=== PATIENT | female | born 1945 | race Hispanic/Latino ===

== ENCOUNTER 2017-08-26 16:36 | Inpatient (IN) | payer MEDICARE ==
[~2017-08-26] VITALS: Ht 162.6 cm; Wt 104.8 kg
[~2017-08-26 16:36] MED LIST: CLONIDINE HCL0.1 MG PO; DILTIAZEM ER240 M1 PO; DUTOPROL 100-11 EACH PO; HUMALOG100 UNITS/ SQ; LANTUS100 UNITS/ SQ; LASIX20 MG PO; LISINOPRIL10 MG PO; METOPROLOL SUCC50 MG PO; NORVASC5 MG PO; PANTOPRAZOLE SO40 MG PO; PRAVACHOL40 MG PO; PRAVASTATIN SOD40 MG PEG; SYNTHROID75 MCG PO; ZESTORETIC 20-1 EACH PO
--- NOTE | 2017-08-26 17:31 | Diagnostic Imaging Report ---
PROCEDURE: Frontal and lateral views of the chest. COMPARISON: 01/21/17 INDICATIONS: SHORTNESS OF BREATH, CHEST PAIN FINDINGS: Lines/tubes: None. Limited by body habitus. Lungs: The lungs are well inflated. Mild central vascular congestion. Pleura: There is no pleural effusion or pneumothorax. Heart and mediastinum: Enlarged cardiomediastinal silhouette. Bones: No acute bony abnormality. IMPRESSION: Central vascular congestion and enlarged cardiomediastinal silhouette. No definite focal consolidation. Dictated by: Samm Tao M.D. on 08/26/2017 at 17:31 Electronically approved by: Samm Tao M.D. on 08/26/2017 at 17:31
[2017-08-26 18:42] LABS: BASOPHILS # (AUTO) 0.1 (0.0-0.1); BASOPHILS % 0.6 % (0.0-1.0); EOSINOPHILS % 0.3 % (0.0-6.0); HEMATOCRIT 34.5 % (34.2-44.1); LYMPHOCYTES # (AUTO) 1.3 (1.0-3.2); LYMPHOCYTES % 12.5 % (18.0-39.1); MEAN CORPUSCULAR HEMOGLOBIN 25.9 pg (28-32); MEAN CORPUSCULAR HGB CONC 31.9 g/dL (31-35); MEAN CORPUSCULAR VOLUME 81.4 fL (81-99); MONOCYTES # (AUTO) 0.6 (0.2-0.8); MONOCYTES % 6.3 % (4.4-11.3); NEUTROPHILS # (AUTO) 8.1 (2.1-6.9); PLATELET COUNT 316 x10e3/uL (140-360); RED BLOOD COUNT 4.24 x10e6/uL (3.6-5.1); RED CELL DISTRIBUTION WIDTH 17.2 % (11.7-14.4)
[2017-08-26 18:52] LABS: INR 1.18; PROTHROMBIN TIME 14.1 seconds (11.9-14.5)
[2017-08-26 18:53] LABS: PARTIAL THROMBOPLASTIN TIME 38.2 seconds (23.8-35.5)
[2017-08-26 18:59] LABS: ALBUMIN 3.2 g/dL (3.5-5.0); ALBUMIN/GLOBULIN RATIO 0.8 (0.8-2.0); ANION GAP 15.8 mmol/L (8-16); CALCIUM 9.2 mg/dL (8.4-10.2); CREATININE, SERUM 1.28 mg/dL (0.57-1.11); POTASSIUM 3.8 mmol/L (3.5-5.1)
[2017-08-26] MEDS ORDERED: ASPIRIN 81 MG CHEW TAB PO ONE (20:30)
[2017-08-26] MEDS ORDERED: FUROSEMIDE INJ 10 MG/ML 4 ML VIAL IV ONE (20:30)
[2017-08-26] MEDS ORDERED: DEXTROSE 50% SYRINGE 50 ML IV PRN (21:00)
[2017-08-26] MEDS ORDERED: MORPHINE SULFATE 2 MG/ML SYR IV PRN (21:00)
[2017-08-26] MEDS ORDERED: ONDANSETRON HCL INJ 2 MG/ML VIAL IV PRN (21:00)
[2017-08-26] MEDS ORDERED: NITROGLYCERIN 0.4 MG SUBL SL PRN (21:00)
[2017-08-26] MEDS: FAMOTIDINE 20 MG/2 ML VIAL IV SCH (21:05)
[2017-08-26] MEDS: INSULIN REGULAR, HUMAN 100 UNIT/1 ML 3ML VIAL SQ SCH (21:15)
--- OUTSIDE RECORDS SUMMARY | 2017-08-26 22:21 | XMS REPORT ---
Author Author [facility] Organization [facility] Address Unknown Phone Unavailable Care Team Providers Care Student Development Coordinator Name Role Phone BREN GARCIA Unavailable Unavailable Problems This patient has no known problems. Allergies, Adverse Reactions, Alerts This patient has no known allergies or adverse reactions. Medications This patient has no known medications. Results Test Description Test Time Test Comments Text Results Atomic Results Result Comments CHEST 2 VIEWS [place] [address] Patient Name: BURT NDIAYE MR #: [id number] : 1945 Age/Sex: 72/F Req #: [id number] Adm Physician: Ordered by: BREN GARCIA MD Report #: [id number] Location: ER Room/Bed: Procedure: [id number] DX/CHEST 2 VIEWS Exam Date: 08/26/17 Exam Time: 1645 REPORT STATUS: Signed PROCEDURE: Frontal and lateral views of the chest. COMPARISON: 01/21/17 INDICATIONS: SHORTNESS OF BREATH, CHEST PAIN FINDINGS: Lines/tubes: None. Limited by body habitus. Lungs: The lungs are well inflated. Mild central vascular congestion. Pleura: There is no pleural effusion or pneumothorax. Heart and mediastinum: Enlarged cardiomediastinal silhouette. Bones: No acute bony abnormality. IMPRESSION: Central vascular congestion and enlarged cardiomediastinal silhouette. No definite focal consolidation. Dictated by: Samm Tao M.D. on 10/2017 at 17:31 Electronically approved by: Samm Tao M.D. on 08/26 at 17:31 Dictated By: SAMM TAO MD 173 Transcribed By: AGUSTINA on 08/26/171730 COPY TO: BREN GARCIA MD
[2017-08-26] MEDS ORDERED: NITROGLYCERIN 2% OINT 1 GM PKT ONE (22:43)
[2017-08-26] MEDS: NITROGLYCERIN 2% OINT 1 GM PKT TOP SCH (22:57)
[2017-08-27] VITALS (8 sets, daily range): BP systolic 143–187; BP diastolic 64–94
[2017-08-27] MEDS: FUROSEMIDE INJ 10 MG/ML 2 ML VIAL IV SCH ×2 (06:00→17:04)
[2017-08-27] MEDS: NITROGLYCERIN 2% OINT 1 GM PKT TOP SCH ×4 (06:00→23:24)
[2017-08-27] MEDS ORDERED: PANTOPRAZOLE SOD 40 MG TABEC PO SCH (06:00)
[2017-08-27] MEDS ORDERED: LEVOTHYROXINE SODIUM 75 MCG TAB PO SCH (06:00)
--- NOTE | 2017-08-27 06:01 | History and Physical ---
PRIMARY CARE PHYSICIAN: Dr. Galicia HAZARDOUS WASTE MANAGEMENT SPECIALIST: Dr. Rivera CHIEF COMPLAINT: Shortness of breath and substernal discomfort. HISTORY OF PRESENT ILLNESS: This is a 72-year-old woman with a history of diabetes mellitus, type 2, now developing shortness of breath and substernal chest tightness that started yesterday. She had some dizziness and nausea. She has never had a stress test before. The patient is admitted for further evaluation and management. Imaging did show pulmonary congestion with some edema. She has been started on diuretics. She is admitted for further evaluation and management. PAST MEDICAL HISTORY: Diabetes mellitus, hypertension, hypothyroidism, GERD, congestive heart failure with normal left ventricular ejection fraction in 2016, bradycardia, chronic kidney disease, stage 3/diabetic nephropathy. PAST SURGICAL HISTORY: Hysterectomy, appendectomy, cholecystectomy. ALLERGIES: PER ELECTRONIC MEDICAL RECORD. FAMILY HISTORY/SOCIAL HISTORY: Patient is . She has 2 children. No alcohol, illicits or cigarettes. MEDICATIONS: Per electronic medical record. REVIEW OF SYSTEMS: Denies any dizziness. PHYSICAL EXAMINATION VITAL SIGNS: Have been reviewed. Blood pressure is 189/89. GENERAL: A tired-appearing woman resting in bed. HEENT: Anicteric. Pupils respond to light. No oral lesions. CARDIOVASCULAR: Normal S1 and S2. LUNGS: She has reduced breath sounds at the bases. ABDOMEN: Soft, nontender and nondistended. EXTREMITIES: She has 1+ leg edema bilaterally. SKIN: Dry. PSYCHIATRIC: Flat affect. LABS: Reviewed. MEDICATIONS: Reviewed. ASSESSMENT: This is a 72-year-old woman with: 1. Acute exacerbation of diastolic congestive heart failure. 2. Diabetic nephropathy/chronic kidney disease, stage 3. 3. Diabetes mellitus, type 2. 4. Obesity. 5. Normocytic anemia, mild to moderate. 6. Hypothyroidism. PLAN 1. Will diurese the patient and monitor I's and O's. 2. Obtain hemoglobin A1c and lipid panel. 3. Monitor renal function while being diuresed. 4. Consultation with hand lens polisher, Dr. Rivera. 5. Continue IV Lasix. 6. Utilizing heparin 5000 q.12 h. and Protonix for prophylaxis. 7. Check TSH. Continue Synthroid. Job#: [id number] [place]
[2017-08-27 06:04] LABS: BASOPHILS # (AUTO) 0.1 (0.0-0.1); EOSINOPHILS # (AUTO) 0.1 (0.0-0.4); EOSINOPHILS % 1.3 % (0.0-6.0); HEMATOCRIT 30.9 % (34.2-44.1); HEMOGLOBIN 9.5 g/dL (12.0-16.0); LYMPHOCYTES # (AUTO) 1.5 (1.0-3.2); LYMPHOCYTES % 22.3 % (18.0-39.1); MEAN CORPUSCULAR HEMOGLOBIN 25.4 pg (28-32); MEAN CORPUSCULAR HGB CONC 30.7 g/dL (31-35); MEAN CORPUSCULAR VOLUME 82.6 fL (81-99); MONOCYTES # (AUTO) 0.8 (0.2-0.8); MONOCYTES % 11.8 % (4.4-11.3); NEUTROPHILS # (AUTO) 4.2 (2.1-6.9); NEUTROPHILS % 63.3 % (38.7-80.0); PLATELET COUNT 271 x10e3/uL (140-360); RED BLOOD COUNT 3.74 x10e6/uL (3.6-5.1); RED CELL DISTRIBUTION WIDTH 17.2 % (11.7-14.4)
[2017-08-27 06:38] LABS: ALBUMIN 2.8 g/dL (3.5-5.0); ALBUMIN/GLOBULIN RATIO 0.8 (0.8-2.0); ANION GAP 13.9 mmol/L (8-16); CALCIUM 8.9 mg/dL (8.4-10.2); CHOL/HDL RATIO 2.6 (3.0-3.6); CREATININE, SERUM 1.45 mg/dL (0.57-1.11); MAGNESIUM 1.6 MG/DL (1.3-2.1); POTASSIUM 3.9 mmol/L (3.5-5.1)
[2017-08-27 06:45] LABS: THYROID STIMULATING HORMONE 1.524 uIU/mL (0.350-4.940)
[2017-08-27] MEDS: INSULIN REGULAR, HUMAN 100 UNIT/1 ML 3ML VIAL SQ SCH ×4 (07:30→21:17)
[2017-08-27] MEDS: ACETAMINOPHEN 325 MG TAB PO PRN (08:30)
[2017-08-27] MEDS ORDERED: HYDRALAZINE HCL 20 MG/ML VIAL IV PRN (09:00)
[2017-08-27] MEDS: HYDRALAZINE HCL 25 MG TAB PO SCH ×2 (09:00→17:00)
[2017-08-27] MEDS: HEPARIN SOD (PORCINE) 5,000 UNIT/ML VIAL SC SCH ×2 (09:00→21:17)
[2017-08-27] MEDS: ASPIRIN 325 MG TAB EC PO SCH (09:00)
[2017-08-27] MEDS: METOPROLOL SUCCINATE 50 MG TAB XL PO SCH (09:00)
[2017-08-27] MEDS: FAMOTIDINE 20 MG/2 ML VIAL IV SCH ×2 (09:00→21:19)
--- NOTE | 2017-08-27 09:46 | Consultation ---
DATE OF CONSULTATION: August 27, 2017 CARDIOLOGY CONSULTATION REASON FOR CONSULTATION: CHF exacerbation. CONSULTING PHYSICIAN: Dr. Galicia HPI: This is a 72-year-old female that presented with shortness of breath. She stated since yesterday she started having shortness of breath, difficulty with carrying out activities of daily living. She gets short of breath with exertion. She also complained of central chest pain on a scale of 5/10 with no radiation that gets worse with ambulation and laying down. She went and saw her PCP, and she was sent to the ER for evaluation. She has a history of CHF and diabetes. She denies any palpitations, any headache or diaphoresis. She also complained of dizziness and nausea. Troponin was negative. EKG showed normal sinus rhythm with no S/T abnormalities. Chest x-ray shows central venous congestion. BNP 469. PAST MEDICAL HISTORY: Hypertension, diabetes, hypothyroidism, CHF, hyperlipidemia, anemia, and obesity. PAST SURGICAL HISTORY: Cholecystectomy, appendectomy, hysterectomy, and bilateral vein stripping. MEDICATIONS: See med list. ALLERGIES: SHE IS NOT ALLERGIC TO ANY MEDICATION. FAMILY HISTORY: Positive for CAD. REVIEW OF SYSTEMS: Negative except those mentioned above. It is positive for shortness of breath. PHYSICAL EXAMINATION VITAL SIGNS: Temperature 97, heart rate 54, blood pressure 152/65, respirations 18, oxygen saturation 95% on room air. GENERAL: She is awake, alert and oriented times 3. HEENT: Mucous membranes moist. NECK: Supple. LUNGS: Bilateral with clear decreased breath sounds. CARDIOVASCULAR: S1 and S2 present. ABDOMEN: Soft. NEUROLOGICAL: Intact. EXTREMITIES: With trace edema. LABS: Sodium 143, potassium 3.9, chloride 103, CO2 30, BUN 28, creatinine 1.45, glucose 224. White blood cells 6.67, hemoglobin 9.5, hematocrit 30.9, platelets 271,000. PT 14.1, PTT 38.2 and INR 1.18. IMPRESSION 1. Acute congestive heart failure exacerbation. 2. Hypertension. 3. Diabetes. 4. Anemia. 5. Obesity. 6. Chest pain. ASSESSMENT AND PLAN: Will get an echo to reassess the LV and the valve function. Will continue diuretic and beta casimiro. Will go ahead and hold the TITA inhibitor. Will add hydralazine. Put him on low salt diet. The chest pain could be related to the central venous congestion and CHF exacerbation. Further cardiac workup pending clinical course. Thank you for this consultation. DICTATED BY MIKE MAHARAJ NP Job#: [id number] RI
[2017-08-27 15:07] LABS: CREATINE KINASE MB 1.1 ng/mL (0-5.0)
[2017-08-27] MEDS: INSULIN DETEMIR 100 UNIT/ML PEN SQ SCH (21:17)
[2017-08-27] MEDS: SIMVASTATIN 40 MG TAB PO SCH (21:19)
[2017-08-27] MEDS ORDERED: CLONIDINE HCL 0.1 MG TAB PO PRN (23:15)
[2017-08-28] VITALS: BP 189/80
[2017-08-28 04:00] VITALS: BP 162/68
[2017-08-28] MEDS: LEVOTHYROXINE SODIUM 75 MCG TAB PO SCH (05:26)
[2017-08-28] MEDS: FUROSEMIDE INJ 10 MG/ML 2 ML VIAL IV SCH ×2 (05:26→16:40)
[2017-08-28] MEDS: NITROGLYCERIN 2% OINT 1 GM PKT TOP SCH ×3 (05:26→16:40)
[2017-08-28] MEDS: INSULIN REGULAR, HUMAN 100 UNIT/1 ML 3ML VIAL SQ SCH ×4 (07:30→21:00)
--- NOTE | 2017-08-28 07:54 | Progress Note ---
DATE: August 28, 2017 TIME: 7:30 a.m. OVERNIGHT: Some anxiety. Able to sleep after receiving Xanax. Small amount of diarrhea. REVIEW OF SYSTEMS: Denies any chest pain. PHYSICAL EXAMINATION VITAL SIGNS: Reviewed. GENERAL: A tired-appearing woman resting in bed. HEENT: Anicteric. CARDIOVASCULAR: Normal S1 and S2. LUNGS: Moderate breath sounds. ABDOMEN: Soft, nontender and nondistended. EXTREMITIES: Trace edema. SKIN: Dry. PSYCHIATRIC: Flat affect. LABS: Reviewed. MEDICATIONS: Reviewed. ASSESSMENT: A 72-year-old woman with: 1. Acute exacerbation of DISREGARD DICTATION, LENGTH 1:25 Job#: [id number] RI
[2017-08-28 08:00] VITALS: BP 125/53
[2017-08-28] MEDS: HYDRALAZINE HCL 25 MG TAB PO SCH (08:45)
[2017-08-28] MEDS: ASPIRIN 325 MG TAB EC PO SCH (08:45)
[2017-08-28] MEDS: FAMOTIDINE 20 MG/2 ML VIAL IV SCH (08:45)
[2017-08-28] MEDS: PANTOPRAZOLE SOD 40 MG TABEC PO SCH (08:45)
[2017-08-28] MEDS: METOPROLOL SUCCINATE 50 MG TAB XL PO SCH (08:45)
[2017-08-28] MEDS: HEPARIN SOD (PORCINE) 5,000 UNIT/ML VIAL SC SCH ×2 (09:00→21:00)
[2017-08-28 12:00] VITALS: BP 151/66
[2017-08-28 16:00] VITALS: BP 146/71
[2017-08-28] MEDS: HYDRALAZINE HCL 100 MG TABLET PO SCH ×2 (16:40→21:00)
[2017-08-28] MEDS: FAMOTIDINE 20 MG TAB PO SCH (16:40)
[2017-08-28 20:00] VITALS: BP 155/70
[2017-08-28] MEDS: SIMVASTATIN 40 MG TAB PO SCH (21:00)
[2017-08-28] MEDS: INSULIN DETEMIR 100 UNIT/ML PEN SQ SCH (21:00)
[2017-08-29] VITALS: BP 134/57
[2017-08-29] MEDS: NITROGLYCERIN 2% OINT 1 GM PKT TOP SCH ×4 (01:02→18:21)
[2017-08-29 04:00] VITALS: BP 143/60
[2017-08-29] MEDS: LEVOTHYROXINE SODIUM 75 MCG TAB PO SCH (05:46)
[2017-08-29] MEDS: FUROSEMIDE INJ 10 MG/ML 2 ML VIAL IV SCH ×2 (05:46→18:21)
[2017-08-29] MEDS: INSULIN REGULAR, HUMAN 100 UNIT/1 ML 3ML VIAL SQ SCH ×4 (07:30→20:51)
[2017-08-29 07:35] VITALS: BP 133/61
[2017-08-29] MEDS: ASPIRIN 325 MG TAB EC PO SCH (07:55)
[2017-08-29] MEDS: FAMOTIDINE 20 MG TAB PO SCH ×2 (07:55→16:00)
[2017-08-29] MEDS: PANTOPRAZOLE SOD 40 MG TABEC PO SCH (07:55)
[2017-08-29] MEDS: HYDRALAZINE HCL 100 MG TABLET PO SCH ×3 (07:55→20:53)
[2017-08-29] MEDS: HEPARIN SOD (PORCINE) 5,000 UNIT/ML VIAL SC SCH ×2 (07:55→21:00)
[2017-08-29] MEDS ORDERED: REGADENOSON 0.4 MG/5 ML SYR IV ONE (09:33)
[2017-08-29 15:30] VITALS: BP 150/64
[2017-08-29] MEDS: METOPROLOL SUCCINATE 50 MG TAB XL PO SCH (16:00)
[2017-08-29] MEDS: ACETAMINOPHEN 325 MG TAB PO PRN (17:35)
[2017-08-29 20:12] VITALS: BP 123/54
[2017-08-29] MEDS: INSULIN DETEMIR 100 UNIT/ML PEN SQ SCH (20:52)
[2017-08-29] MEDS: SIMVASTATIN 40 MG TAB PO SCH (21:00)
[2017-08-30] VITALS: BP 132/59
[2017-08-30 01:05] VITALS: BP 132/59
[2017-08-30 05:29] VITALS: BP 110/56
[2017-08-30] MEDS: LEVOTHYROXINE SODIUM 75 MCG TAB PO SCH (06:06)
[2017-08-30] MEDS: FUROSEMIDE INJ 10 MG/ML 2 ML VIAL IV SCH (06:06)
[2017-08-30] MEDS: NITROGLYCERIN 2% OINT 1 GM PKT TOP SCH ×3 (06:07→12:00)
[2017-08-30] MEDS: INSULIN REGULAR, HUMAN 100 UNIT/1 ML 3ML VIAL SQ SCH ×2 (07:30→11:30)
[2017-08-30] MEDS: FAMOTIDINE 20 MG TAB PO SCH (07:30)
[2017-08-30 07:44] VITALS: BP 125/56
[2017-08-30 08:00] VITALS: BP 125/56
[2017-08-30 08:33] LABS: BASOPHILS % 0.5 % (0.0-1.0); EOSINOPHILS # (AUTO) 0.1 (0.0-0.4); EOSINOPHILS % 1.6 % (0.0-6.0); HEMATOCRIT 34.1 % (34.2-44.1); HEMOGLOBIN 10.4 g/dL (12.0-16.0); LYMPHOCYTES # (AUTO) 1.3 (1.0-3.2); LYMPHOCYTES % 15.6 % (18.0-39.1); MEAN CORPUSCULAR HEMOGLOBIN 25.8 pg (28-32); MEAN CORPUSCULAR HGB CONC 30.5 g/dL (31-35); MEAN CORPUSCULAR VOLUME 84.6 fL (81-99); MONOCYTES # (AUTO) 0.9 (0.2-0.8); MONOCYTES % 10.9 % (4.4-11.3); NEUTROPHILS # (AUTO) 5.8 (2.1-6.9); NEUTROPHILS % 71.2 % (38.7-80.0); PLATELET COUNT 338 x10e3/uL (140-360); RED BLOOD COUNT 4.03 x10e6/uL (3.6-5.1); RED CELL DISTRIBUTION WIDTH 17.2 % (11.7-14.4)
[2017-08-30 08:51] LABS: ALBUMIN 2.8 g/dL (3.5-5.0); ALBUMIN/GLOBULIN RATIO 0.8 (0.8-2.0); CREATININE, SERUM 1.99 mg/dL (0.57-1.11)
[2017-08-30] MEDS: PANTOPRAZOLE SOD 40 MG TABEC PO SCH (09:00)
[2017-08-30] MEDS: METOPROLOL SUCCINATE 50 MG TAB XL PO SCH (09:00)
[2017-08-30] MEDS: ASPIRIN 325 MG TAB EC PO SCH (09:00)
[2017-08-30] MEDS: HEPARIN SOD (PORCINE) 5,000 UNIT/ML VIAL SC SCH (09:00)
[2017-08-30] MEDS: HYDRALAZINE HCL 100 MG TABLET PO SCH (09:00)
--- NOTE | 2017-08-30 13:01 | Cardiology Report ---
DATE OF STUDY: August 29, 2017 LEXISCAN NUCLEAR STRESS TEST INDICATION: Chest pain. DESCRIPTION OF PROCEDURE: After informed consent, patient was brought to the stress lab. She was given 10 mCi of technetium 99 Myoview, and myocardial perfusion SPECT images were obtained in the horizontal long axis, short axis and vertical long axis views. Subsequently, patient was given 0.4 mg Lexiscan intravenously. Patient was given 27 mCi of technetium 99 Myoview, and myocardial perfusion SPECT images were obtained in the horizontal long axis, short axis and vertical long axis views. Gating images were also obtained. Patient tolerated this procedure without any complications. REPORT: Baseline EKG shows sinus bradycardia at 55 beats per minute, normal axis, normal intervals, nonspecific ST-T changes. PARAMETERS 1. Resting heart rate is 58 beats per minute. 2. Maximum heart rate is 85 beats per minute. 3. Resting blood pressure is 133/56 mmHg. 4. Maximum blood pressure 153/52 mmHg. REASON FOR TERMINATION: Endpoint attained. INTERPRETATION 1. Negative for chest pain. 2. Negative for arrhythmias. 3. Blood pressure response consistent with Lexiscan. 4. No significant ST-T changes seen during Lexiscan infusion compared to baseline. 5. Analysis of SPECT images reveals uniform radioisotope uptake in all segments of the myocardium without any significant perfusion defects. CONCLUSION: 1. No evidence of significant ischemia or infarction on this study. 2. No wall motion abnormalities. 3. Overall ejection fraction is 61%. Job#: [id number] EV
== END 2017-08-30 14:44 | disposition home or self-care (01) | DRG 291 ==
LOC: ER 16:36 → CANBEDREQ 20:44 → ERHOLD 22:18 → MED/SURG2 23:23 → OBSVTOIN 08-28 14:51
PROVIDERS: ADMIT Internal Medicine; ATTEND Internal Medicine
DX: I13.0 Hypertensive heart and chronic kidney disease with heart failure and stage 1 through stage 4 chronic kidney disease, or unspecified chronic kidney disease (principal); I50.33 Acute on chronic diastolic (congestive) heart failure; E11.21 Type 2 diabetes mellitus with diabetic nephropathy; N18.3 Chronic kidney disease, stage 3 (moderate); E11.22 Type 2 diabetes mellitus with diabetic chronic kidney disease; Z79.4 Long term (current) use of insulin; E03.9 Hypothyroidism, unspecified; E78.5 Hyperlipidemia, unspecified; D64.9 Anemia, unspecified; E66.9 Obesity, unspecified; Z68.39 Body mass index [BMI] 39.0-39.9, adult; R07.9 Chest pain, unspecified
CPT/HCPCS: 36415; 71046; 78452; 80053; 80061; 82550; 82553; 82948; 83036; 83735; 83880; 84443; 84484; 85025; 85610; 85730; 93005; 93017; 93306; 99284; A9502; G0378; J0360; J1644; J1940; J2405

== ENCOUNTER 2018-01-31 13:01 | Inpatient (IN) | payer MEDICARE ==
[~2018-01-31] VITALS: Ht 162.6 cm; Wt 102.1 kg
[2018-01-31 13:47] LABS: BASOPHILS # (AUTO) 0.1 (0.0-0.1); BASOPHILS % 0.5 % (0.0-1.0); EOSINOPHILS % 0.1 % (0.0-6.0); HEMATOCRIT 34.8 % (34.2-44.1); HEMOGLOBIN 10.9 g/dL (12.0-16.0); LYMPHOCYTES # (AUTO) 0.9 (1.0-3.2); LYMPHOCYTES % 8.5 % (18.0-39.1); MEAN CORPUSCULAR HEMOGLOBIN 25.2 pg (28-32); MEAN CORPUSCULAR HGB CONC 31.3 g/dL (31-35); MEAN CORPUSCULAR VOLUME 80.4 fL (81-99); MONOCYTES % 9.1 % (4.4-11.3); NEUTROPHILS # (AUTO) 8.8 (2.1-6.9); NEUTROPHILS % 81.3 % (38.7-80.0); PLATELET COUNT 248 x10e3/uL (140-360); RED BLOOD COUNT 4.33 x10e6/uL (3.6-5.1); RED CELL DISTRIBUTION WIDTH 17.5 % (11.7-14.4)
[2018-01-31 13:59] LABS: INR 1.29; PROTHROMBIN TIME 15.1 seconds (11.9-14.5)
[2018-01-31 14:00] LABS: PARTIAL THROMBOPLASTIN TIME 36.2 seconds (23.8-35.5)
[2018-01-31] MEDS ORDERED: FUROSEMIDE INJ 10 MG/ML 4 ML VIAL IV ONE (14:00)
[2018-01-31 14:09] LABS: ALBUMIN/GLOBULIN RATIO 0.8 (0.8-2.0); ANION GAP 14.8 mmol/L (8-16); CALCIUM 9.4 mg/dL (8.4-10.2); CREATININE, SERUM 1.38 mg/dL (0.57-1.11); POTASSIUM 3.8 mmol/L (3.5-5.1)
[2018-01-31 14:15] LABS: CREATINE KINASE MB 0.5 ng/mL (0-5.0)
--- NOTE | 2018-01-31 16:03 | Diagnostic Imaging Report ---
PROCEDURE: A single AP view of the chest. COMPARISON: Chest radiograph 08/26/17. INDICATIONS: SHORTNESS OF BREATH FINDINGS: Lines/tubes: None. Lungs: The lungs are well inflated and clear. There is no evidence of pneumonia or pulmonary edema. Pleura: There is no pleural effusion or pneumothorax. Heart and mediastinum: Mild enlargement of the cardiomediastinal silhouette. Bones: No acute bony abnormality. IMPRESSION: Mild enlarged cardiomediastinal silhouette without evidence of pneumonia or pulmonary edema. Dictated by: LUH ARREGUIN M.D. on 01/31/2018 at 14:48 Electronically approved by: LUH ARREGUIN M.D. on 01/31/2018 at 14:48
[2018-01-31] MEDS ORDERED: SODIUM CHLORIDE FLUSH 10 ML SYR INJ PRN (16:45)
[2018-01-31] MEDS: FUROSEMIDE INJ 10 MG/ML 4 ML VIAL IV SCH (17:03)
[2018-01-31] MEDS ORDERED: DEXTROSE 50% SYRINGE 50 ML IV PRN (17:30)
[2018-01-31 19:05] LABS: CLARITY,URINE SL CLOUDY (CLEAR); COLOR,URINE YELLOW (YELLOW); KETONES,URINE NEGATIVE (NEGATIVE); LEUKOCYTE ESTERASE ,URINE NEGATIVE (NEGATIVE); NITRITE,URINE NEGATIVE (NEGATIVE); PROTEIN,URINE DIPSTICK 2+ (NEGATIVE)
[2018-01-31 19:06] LABS: BILIRUBIN,URINE NEGATIVE (NEGATIVE); URINE UROBILINOGEN 1 mg/dL (0.2 - 1)
[2018-01-31 19:13] LABS: AMORPHOUS SEDIMENT,URINE FEW (FEW); BACTERIA,URINE MODERATE /HPF; EPITHELIAL CELLS,URINE FEW /LPF
[2018-01-31 20:00] VITALS: BP 161/73
[2018-01-31 21:00] VITALS: BP 161/73
[2018-01-31] MEDS: INSULIN DETEMIR 100 UNIT/ML PEN SQ SCH (21:00)
[2018-01-31 22:34] LABS: CREATINE KINASE MB 1.5 ng/mL (0-5.0)
[2018-02-01] VITALS (9 sets, daily range): BP systolic 165–198; BP diastolic 66–90
[2018-02-01] MEDS: CLONIDINE HCL 0.1 MG TAB PO PRN ×2 (03:43→21:33)
--- NOTE | 2018-02-01 05:25 | Diagnostic Imaging Report ---
EXAM: CHEST SINGLE (PORTABLE), AP 1 view INDICATION: Shortness of breath COMPARISON: AP view of the chest January 31, 2018 FINDINGS: LINES/TUBES: None LUNGS: No consolidations or edema. PLEURA: No effusions or pneumothorax. HEART AND MEDIASTINUM: Stable appearance. BONES AND SOFT TISSUES: No acute findings. IMPRESSION: No acute thoracic abnormality. Signed by: Dr. Callie Harley M.D. on 02/01/2018 5:22 AM
[2018-02-01 05:44] LABS: BASOPHILS % 0.2 % (0.0-1.0); EOSINOPHILS % 0.2 % (0.0-6.0); HEMATOCRIT 29.9 % (34.2-44.1); HEMOGLOBIN 9.3 g/dL (12.0-16.0); LYMPHOCYTES # (AUTO) 1.1 (1.0-3.2); LYMPHOCYTES % 9.8 % (18.0-39.1); MEAN CORPUSCULAR HGB CONC 31.1 g/dL (31-35); MEAN CORPUSCULAR VOLUME 80.4 fL (81-99); MONOCYTES # (AUTO) 1.1 (0.2-0.8); MONOCYTES % 10.2 % (4.4-11.3); NEUTROPHILS # (AUTO) 8.8 (2.1-6.9); NEUTROPHILS % 79.3 % (38.7-80.0); PLATELET COUNT 205 x10e3/uL (140-360); RED BLOOD COUNT 3.72 x10e6/uL (3.6-5.1); RED CELL DISTRIBUTION WIDTH 17.3 % (11.7-14.4)
[2018-02-01 05:59] LABS: ANION GAP 13.6 mmol/L (8-16); CALCIUM 8.8 mg/dL (8.4-10.2); CREATININE, SERUM 1.29 mg/dL (0.57-1.11); POTASSIUM 3.6 mmol/L (3.5-5.1)
[2018-02-01] MEDS: LEVOTHYROXINE SODIUM 75 MCG TAB PO SCH (06:07)
[2018-02-01 06:20] LABS: CREATINE KINASE MB 0.6 ng/mL (0-5.0)
[2018-02-01] MEDS ORDERED: ACETAMINOPHEN 325 MG TAB PO PRN (07:15)
[2018-02-01] MEDS: PANTOPRAZOLE SOD 40 MG TABEC PO SCH (07:57)
[2018-02-01] MEDS: INSULIN LISPRO 100 UNIT/1 ML 3ML VIAL SQ SCH ×2 (07:57→17:04)
[2018-02-01] MEDS ORDERED: SIMVASTATIN 20 MG TAB PO SCH (09:00)
[2018-02-01] MEDS: METOPROLOL SUCCINATE 50 MG TAB XL PO SCH (09:00)
[2018-02-01] MEDS ORDERED: LISINOPRIL 10 MG TAB PO SCH (09:00)
[2018-02-01] MEDS ORDERED: LISINOPRIL 20 MG TAB PO SCH (09:00)
[2018-02-01] MEDS: FUROSEMIDE INJ 10 MG/ML 4 ML VIAL IV SCH ×2 (09:48→17:02)
[2018-02-01] MEDS: LISINOPRIL 20 MG TAB PO SCH (17:02)
--- NOTE | 2018-02-01 19:53 | Consultation ---
DATE OF CONSULTATION: REASON FOR CONSULTATION: Shortness of breath. HISTORY OF PRESENT ILLNESS: Mrs. Rivera is a 72-year-old female with pertinent past medical history of CHF and follows Dr. Rivera. She states that she came into the hospital due to worsening shortness of breath. She states that she noticed the shortness of breath getting worse last few weeks. However, she has been struggling the last month. She, at this moment, denies any chest pain, does endorse shortness of breath, but feels a lot better while on oxygen. Denies any palpitations, dizziness, syncope, nausea, vomiting, abdominal pain or dysuria. PAST MEDICAL HISTORY: Hypertension, diabetes, hypothyroidism, CHF, hyperlipidemia, anemia, obesity. PAST SURGICAL HISTORY: Cholecystectomy, appendectomy, hysterectomy, and multiple venous procedures. ALLERGIES: PER ELECTRONIC CHART. FAMILY HISTORY: Pertinent for CAD. REVIEW OF SYSTEMS: Negative except as mentioned above. VITALS: Temperature 98.1. Pulse 68. Respiratory rate 16. Blood pressure 165/69. Oxygen saturation 98% on 3 L nasal cannula. CARDIOVASCULAR MEDICATIONS 1. Lisinopril 10 mg p.o. daily. 2. Lasix 40 IV b.i.d. 3. Levothyroxine 75 mcg p.o. daily. 4. Clonidine 0.1 mg q.6 h p.r.n. for hypertension. 5. Metoprolol 100 p.o. daily. 6. Simvastatin 40 p.o. nightly. LABS: WBC 11.07, hemoglobin 9.3, hematocrit 29.9, platelets 205,000. Sodium 140, potassium 3.6, BUN 26, creatinine 1.29, glucose 213, creatinine kinase 53, CK-MB 0.60, troponin 0.006. Chest x-ray from yesterday with no acute thoracic abnormalities. Telemetry sinus rhythm. PHYSICAL EXAM GENERAL: Alert and oriented times 3. Resting comfortably in bed. Does not appear to be in any acute distress. LUNGS: Clear to auscultation throughout. No wheezing, no rhonchi or crackles noted. CARDIOVASCULAR: Regular rate and rhythm. Normal S1, S2. No gallops or murmurs noted. ABDOMEN: Rounded, soft, nontender. LOWER EXTREMITIES: Trace edema bilaterally. IMPRESSIONS 1. Shortness of breath. 2. Congestive heart failure. 3. Hypertension. 4. Diabetes mellitus. ASSESSMENT AND PLAN: Patient does not appear to be volume overloaded at this point. Chest x-ray negative and . However, continue diuretics and the above-listed cardiac medication at this time. Up titrate lisinopril dose for better blood pressure control. Consider ischemic evaluation. This can be done as outpatient. Obtain echocardiogram this morning. Recommendations will follow. We thank you very much for this consultation and allowing us to participate in this patient's care. Maintain on oxygen. May need to be evaluated for oxygen as outpatient. Dictated By: Clair Calzada NP Job#: [id number] CQ
[2018-02-01] MEDS: SIMVASTATIN 40 MG TAB PO SCH (20:14)
[2018-02-01] MEDS: INSULIN DETEMIR 100 UNIT/ML PEN SQ SCH (20:28)
[2018-02-02] VITALS (10 sets, daily range): BP systolic 149–177; BP diastolic 62–104
[2018-02-02] MEDS: LEVOTHYROXINE SODIUM 75 MCG TAB PO SCH (06:06)
[2018-02-02] MEDS: INSULIN LISPRO 100 UNIT/1 ML 3ML VIAL SQ SCH ×2 (07:30→16:38)
[2018-02-02] MEDS: PANTOPRAZOLE SOD 40 MG TABEC PO SCH (08:06)
[2018-02-02] MEDS: METOPROLOL SUCCINATE 50 MG TAB XL PO SCH (08:36)
[2018-02-02] MEDS: FUROSEMIDE INJ 10 MG/ML 4 ML VIAL IV SCH (09:23)
[2018-02-02] MEDS: LISINOPRIL 20 MG TAB PO SCH ×2 (09:24→16:20)
--- NOTE | 2018-02-02 12:32 | Progress Note ---
DATE: CARDIOLOGY PROGRESS NOTE SUBJECTIVE: Patient states that she feels a lot better today. Shortness of breath has improved. Wondering if she would qualify for home oxygen. Otherwise, denies any chest pain. OBJECTIVE VITAL SIGNS: Temperature 96.1, pulse 54, respiratory rate 14, blood pressure 170/83, oxygen saturation 97% on 3 L nasal cannula. CARDIOVASCULAR MEDICATIONS 1. Lisinopril 20 mg p.o. b.i.d. 2. Lasix 40 IV b.i.d. 3. Clonidine 0.1 mg q.6 h. p.r.n. for elevated BP. 4. Simvastatin 40 mg p.o. at night. 5. Metoprolol 100 mg p.o. daily. LABS: No new labs today. Chest x-ray from yesterday with no acute thoracic abnormalities. Telemetry is sinus bradycardia. PHYSICAL EXAMINATION GENERAL: Alert and oriented times 3. and daughter at the bedside. Does not appear to be in any acute distress. Sitting upright. LUNGS: Clear to auscultation throughout. No wheezing. No rhonchi or crackles noted. CARDIOVASCULAR: Regular rate and rhythm. Diastolic murmur present. Normal S1 and S2. ABDOMEN: Rounded, soft and nontender. EXTREMITIES: Trace edema bilaterally. IMPRESSION 1. Shortness of breath. 2. Congestive heart failure. 3. Hypertension. 4. Diabetes mellitus. ASSESSMENT AND PLAN: The patient does not appear to be volume overloaded at this point. Does not appear to be in acute exacerbation of her heart failure. However, continue with the above-listed cardiac medications. Consider transitioning Lasix to p.o. for now, and plan for discharge early in the week. Also, ambulatory oxygen check to see if need for home oxygen. Consider ischemic eval as an outpatient. Awaiting echocardiogram review. Recommendations will follow. DICTATED BY REX KIRKPATRICK NP Job#: [id number] [place]
[2018-02-02] MEDS: FUROSEMIDE 40 MG TAB PO SCH ×2 (16:19→20:28)
[2018-02-02] MEDS: CLONIDINE HCL 0.1 MG TAB PO PRN ×2 (16:20→20:30)
[2018-02-02] MEDS: SIMVASTATIN 40 MG TAB PO SCH (20:29)
[2018-02-02] MEDS: INSULIN DETEMIR 100 UNIT/ML PEN SQ SCH (20:33)
[2018-02-03] VITALS: BP 175/73
[2018-02-03 04:00] VITALS: BP 160/70
[2018-02-03] MEDS: LEVOTHYROXINE SODIUM 75 MCG TAB PO SCH (05:04)
[2018-02-03] MEDS: CLONIDINE HCL 0.1 MG TAB PO PRN (05:04)
[2018-02-03] MEDS: FUROSEMIDE INJ 10 MG/ML 4 ML VIAL IV SCH ×3 (05:40→21:14)
[2018-02-03 06:20] LABS: BASOPHILS % 0.4 % (0.0-1.0); EOSINOPHILS # (AUTO) 0.2 (0.0-0.4); EOSINOPHILS % 2.8 % (0.0-6.0); HEMATOCRIT 31.8 % (34.2-44.1); HEMOGLOBIN 9.7 g/dL (12.0-16.0); LYMPHOCYTES # (AUTO) 1.4 (1.0-3.2); MEAN CORPUSCULAR HEMOGLOBIN 24.8 pg (28-32); MEAN CORPUSCULAR HGB CONC 30.5 g/dL (31-35); MEAN CORPUSCULAR VOLUME 81.3 fL (81-99); MONOCYTES # (AUTO) 0.8 (0.2-0.8); MONOCYTES % 10.9 % (4.4-11.3); NEUTROPHILS # (AUTO) 4.7 (2.1-6.9); NEUTROPHILS % 65.6 % (38.7-80.0); PLATELET COUNT 216 x10e3/uL (140-360); RED BLOOD COUNT 3.91 x10e6/uL (3.6-5.1); RED CELL DISTRIBUTION WIDTH 16.9 % (11.7-14.4)
[2018-02-03 06:22] LABS: ALBUMIN 2.4 g/dL (3.5-5.0); ALBUMIN/GLOBULIN RATIO 0.7 (0.8-2.0); ANION GAP 13.3 mmol/L (8-16); CALCIUM 8.9 mg/dL (8.4-10.2); CREATININE, SERUM 1.16 mg/dL (0.57-1.11); POTASSIUM 3.3 mmol/L (3.5-5.1)
[2018-02-03] MEDS: INSULIN LISPRO 100 UNIT/1 ML 3ML VIAL SQ SCH ×2 (07:30→16:10)
[2018-02-03 07:39] VITALS: BP 127/53
[2018-02-03] MEDS: METOPROLOL SUCCINATE 50 MG TAB XL PO SCH (08:25)
[2018-02-03] MEDS: PANTOPRAZOLE SOD 40 MG TABEC PO SCH (08:44)
[2018-02-03] MEDS: LISINOPRIL 20 MG TAB PO SCH ×2 (08:44→16:10)
[2018-02-03 16:36] VITALS: BP 158/81
--- NOTE | 2018-02-03 19:09 | Progress Note ---
DATE: February 03, 2018 CARDIOLOGY PROGRESS NOTE SUBJECTIVE: No major events overnight. Her shortness of breath is significantly improved. Had home O2 assessment earlier today showing desatting down to 87% with exertion. No chest pain. Lower extremity edema significantly improved as well. REVIEW OF SYSTEMS: As above, otherwise negative. OBJECTIVE VITAL SIGNS: Temperature 96.6, pulse 69, respiratory rate 20, blood pressure 158/81, satting 94% on 3 L nasal cannula. GENERAL: Elderly female in no acute distress. CARDIOVASCULAR: Regular rate and rhythm. No murmurs, rubs or gallops. PMI nondisplaced. Palpable carotid pulses. Palpable radial pulses. Palpable pedal pulses. Trace edema around the ankle. RESPIRATORY: Lungs are clear to auscultation bilaterally. No respiratory distress. ABDOMEN: Soft, nontender, nondistended. NEURO AND PSYCH: Alert and oriented to person, place and time. Normal affect. LABORATORY DATA: Reviewed. CARDIOVASCULAR MEDICATIONS: Reviewed. ASSESSMENT 1. [id number] diastolic heart failure. 2. Hypoxia. 3. Shortness of breath. 4. Hypertension. 5. Diabetes. 6. Acute kidney injury on chronic kidney disease. PLAN: Continue IV diuretics for now as the patient remains hypoxic. Likely has advanced diastolic heart failure given preserved EF on previous echoes. Has had a normal stress test done in the past per the patient and the family but never had a cath. Ambulatory oxygen check shows that she needs home oxygen. Will discontinue lisinopril for now as the patient has a history of cough with lisinopril and change it to an ARB. Her heart rates dip down into the 40s and 50s on telemetry. Will discontinue metoprolol for now and change to carvedilol, which has less beta blockade. Thank you for this consult. Will continue to follow. Job#: [id number]
[2018-02-03 20:00] VITALS: BP 159/99
[2018-02-03] MEDS: SIMVASTATIN 40 MG TAB PO SCH (21:14)
[2018-02-03] MEDS: INSULIN DETEMIR 100 UNIT/ML PEN SQ SCH (21:14)
[2018-02-03 22:12] VITALS: BP 159/99
[2018-02-04] VITALS: BP 157/92
[2018-02-04 04:00] VITALS: BP 151/82
[2018-02-04] MEDS: FUROSEMIDE INJ 10 MG/ML 4 ML VIAL IV SCH ×2 (05:19→13:54)
[2018-02-04] MEDS: LEVOTHYROXINE SODIUM 75 MCG TAB PO SCH (05:19)
[2018-02-04] MEDS: INSULIN LISPRO 100 UNIT/1 ML 3ML VIAL SQ SCH ×2 (07:30→17:01)
[2018-02-04 08:23] VITALS: BP 131/55
[2018-02-04] MEDS: CARVEDILOL 12.5 MG TAB PO SCH ×2 (08:39→17:01)
[2018-02-04] MEDS: PANTOPRAZOLE SOD 40 MG TABEC PO SCH (08:39)
[2018-02-04] MEDS ORDERED: LOSARTAN POTASSIUM 100 MG TAB PO SCH (09:00)
[2018-02-04 12:29] VITALS: BP 144/71
--- NOTE | 2018-02-04 15:43 | Progress Note ---
DATE: February 04, 2018 CARDIOLOGY PROGRESS NOTE SUBJECTIVE: No major events overnight. Breathing is better today. Plan to be discharged today on home oxygen. REVIEW OF SYSTEMS: Is as above, otherwise negative. OBJECTIVE VITAL SIGNS: Temperature 96.6, pulse 77, respiratory rate 20, blood pressure 131/55, and satting 98% on 2 L. GENERAL: Elderly female in no acute distress. CARDIOVASCULAR: Regular rate and rhythm. No murmurs, rubs or gallops. PMI nondisplaced. Palpable carotid pulses. Palpable radial pulses. Palpable pedal pulses. Trace edema on the ankle. RESPIRATORY: Lungs are clear to auscultation bilaterally. No respiratory distress. ABDOMEN: Soft, nontender and nondistended. NEURO/PSYCH: Alert and oriented to person, place and time. Normal affect. LABORATORY DATA: Reviewed. CARDIOVASCULAR MEDICATIONS: Reviewed. Prescriptions given. ASSESSMENT 1. [id number] diastolic heart failure. 2. Hypoxia. 3. Shortness of breath. 4. Hypertension. 5. Diabetes. 6. Acute kidney injury on chronic kidney disease. PLAN: The patient is ready to be discharged today from a cardiovascular standpoint. Continue her current regimen of carvedilol 6.25 mg b.i.d., as well as losartan 50 mg daily for her diastolic heart failure. Change back to her home diuretic dose of 40 mg b.i.d. The patient will follow up with us in the clinic in 2 weeks post discharge. The patient is to go home on home oxygen. Metoprolol discontinued this admission due to bradycardia in the 40s and 50s. Lisinopril discontinued given her previous history of cough with lisinopril. Thank you for this consult. Will continue to follow. Job#: [id number] AUTUMN
[2018-02-04] MEDS ORDERED: CARVEDILOL3.125 MG PO (16:32)
[2018-02-04] MEDS ORDERED: LOSARTAN POTAS100 MG PO (16:32)
[2018-02-04] MEDS ORDERED: FUROSEMIDE40 MG PO (16:33)
[2018-02-04 17:43] VITALS: BP 151/67
== END 2018-02-04 18:06 | disposition home or self-care (01) | DRG 291 ==
LOC: ER 13:01 → ERHOLD 17:12 → IMCU 20:36 → OBSVTOIN 02-02 10:12 → MED/SURG 02-02 10:47
PROVIDERS: ADMIT Internal Medicine; ATTEND Internal Medicine
DX: I13.0 Hypertensive heart and chronic kidney disease with heart failure and stage 1 through stage 4 chronic kidney disease, or unspecified chronic kidney disease (principal); I50.33 Acute on chronic diastolic (congestive) heart failure; N17.9 Acute kidney failure, unspecified; E78.5 Hyperlipidemia, unspecified; Z82.49 Family history of ischemic heart disease and other diseases of the circulatory system; E03.9 Hypothyroidism, unspecified; D64.9 Anemia, unspecified; E66.9 Obesity, unspecified; E11.22 Type 2 diabetes mellitus with diabetic chronic kidney disease; R09.02 Hypoxemia; N18.3 Chronic kidney disease, stage 3 (moderate); Z68.38 Body mass index [BMI] 38.0-38.9, adult
CPT/HCPCS: 36415; 71045; 80048; 80053; 81001; 82550; 82553; 82948; 83735; 83880; 84484; 85025; 85610; 85730; 87086; 93005; 93306; 96372; 99284; G0378; J1940; J7799

== ENCOUNTER → 2018-02-28 | Day surgery (SDC) | payer MEDICARE ==
[2018-02-27 11:37] LABS: BASOPHILS # (AUTO) 0.1 (0.0-0.1); BASOPHILS % 0.7 % (0.0-1.0); EOSINOPHILS # (AUTO) 0.2 (0.0-0.4); HEMATOCRIT 37.6 % (34.2-44.1); HEMOGLOBIN 11.4 g/dL (12.0-16.0); LYMPHOCYTES # (AUTO) 1.9 (1.0-3.2); LYMPHOCYTES % 25.2 % (18.0-39.1); MEAN CORPUSCULAR HEMOGLOBIN 25.2 pg (28-32); MEAN CORPUSCULAR HGB CONC 30.3 g/dL (31-35); MEAN CORPUSCULAR VOLUME 83.2 fL (81-99); MONOCYTES # (AUTO) 0.8 (0.2-0.8); NEUTROPHILS # (AUTO) 4.7 (2.1-6.9); NEUTROPHILS % 61.8 % (38.7-80.0); PLATELET COUNT 233 x10e3/uL (140-360); RED BLOOD COUNT 4.52 x10e6/uL (3.6-5.1)
[2018-02-27 11:53] LABS: ALBUMIN 3.3 g/dL (3.5-5.0); ALBUMIN/GLOBULIN RATIO 0.9 (0.8-2.0); ANION GAP 15.7 mmol/L (8-16); CALCIUM 9.9 mg/dL (8.4-10.2); CREATININE, SERUM 1.98 mg/dL (0.57-1.11); POTASSIUM 3.7 mmol/L (3.5-5.1)
[~2018-02-28] VITALS: Ht 162.6 cm; Wt 98.0 kg
[2018-02-28] VITALS (9 sets, daily range): BP systolic 130–178; BP diastolic 43–78
[~2018-02-28] MED LIST changes: +CARVEDILOL3.125 MG PO; +FENTANYL CITRATE/PF 100MCG/2 ML INJ ONE; +FUROSEMIDE40 MG PO; +HEPARIN SOD (PORCINE) 1000 UNIT/ML 30ML ONE; +HEPARIN SOD/SOD CHLORIDE 2,000 ML ONE; +HYDRALAZINE HCL25 MG PO; +IOPAMIDOL 370 MG/ML 200 ML INFUS..BTL INJ ONE; +LIDOCAINE HCL 2% LOCAL 20 ML VIAL ONE; +LOSARTAN POTAS100 MG PO; +MIDAZOLAM HCL 2 MG/2 ML VIAL ONE; +NITROGLYCERIN/D5W 200 MCG/ML 250 ML ONE; +SODIUM CHLORIDE 0.9% 1000ML 1,000 ML ONE; +VERAPAMIL HCL 2.5 MG/ML 2 ML VIAL ONE
--- OUTSIDE RECORDS SUMMARY | 2018-03-27 06:37 | XMS REPORT | Continuity of Care Document ---
Author Author [facility] Organization [facility] Address [address] [place] [address] Phone Unavailable Care Team Providers Care Linux Administrator Name Role Phone MAYRA LOPEZ MD PCP Insurance Providers Guarantor Amanda Beck Address [address] [place] [address] Email [email or web address] Policy Number [id number] Subscriber's Name Amanda Beck Relationship 18 Self / Same As Patient Group Name RETIRED Effective Date 15 Advance Directives Directive Response Recorded Date/Time Does the patient have an advance directive? No 01/31/18 9:00pm If yes, is advance directive on file with [facility]? No 01/31/18 9:00pm If not on file with [facility] will patient provide a copy? No 01/31/18 9:00pm Do you have a Directive to Physician? No 01/31/18 2:03pm Do you have a Medical Power of Sounding Device Operator? No 01/31/18 2:03pm Do you have an out of hospital Do Not Resuscitate Order? No 01/31/18 2:03pm Do you have any special needs we should be aware of? No 01/31/18 2:03pm Do you have a support person here with you today? Yes 01/31/18 2:03pm Did patient receive Notice of Privacy Practices? Yes 01/31/18 2:03pm Did patient receive patient rights and responsibilities? Yes 01/31/18 2:03pm Problems Medical Problem Onset Date Status CHF (congestive heart failure) Unknown CHF (congestive heart failure) Unknown Cervical strain Unknown Acute Chest pain Unknown TIA (transient ischemic attack) Unknown Medications Current Home Medications Medication Dose Units Route Directions Days Qty Instructions Start Date Carvedilol 3.125 Mg Tablet 6.25 Mg Oral Twice A Day 60 Tab Furosemide (Lasix) 20 Mg Tablet 20 Mg Oral Twice A Day 30 Tab Furosemide 40 Mg Tablet 40 Mg Oral Twice A Day 30 Tab Insulin Glargine (Lantus) 100 Units/Ml Ml 36 Units Sub-Q Qhs Insulin Human Lispro (Humalog) 100 Units/Ml Ml 13 Units Sub-Q Twice A Day BEFORE BREAKFAST AND BEFORE DINNER Levothyroxine Sodium (Synthroid) 75 Mcg Tab 75 Mcg Oral Rt Daily Losartan Potassium 100 Mg Tablet 50 Mg Oral Daily Pantoprazole Sodium (Protonix) 40 Mg Tablet.dr 40 Mg Oral Rt Daily Pravastatin Sodium (Pravachol) 40 Mg Tablet 40 Mg Oral Daily Past Home Medications Medication Directions Ordered Status Amlodipine Besylate (Norvasc) 5 Mg Tab, 5 Mg Oral Daily Discontinued Clonidine Hcl 0.1 Mg Tablet, 1 Tab Oral Every 6 Hours as needed for Elevated Blood Pressure Discontinued Diltiazem Hcl (Diltiazem Er) 240 Mg Capsule.er, 240 Mg Oral Twice A Day Discontinued Lisinopril 10 Mg Tablet, 20 Mg Oral Daily Discontinued Lisinopril/Hydrochlorothiazide (Zestoretic 20-12.5 Mg Tablet) 1 Each Tablet, 1 Each Oral Twice A Day Discontinued Metoprolol Succinate 50 Mg Tab.er.24h, 100 Mg Oral Daily Discontinued Metoprolol Succinate/Hctz (Dutoprol 100-12.5 Mg Tablet) 1 Each Tab.er.24h, 12.5 Mg Oral Daily Discontinued Pravastatin Sodium 40 Mg Tablet, 1 Tab Peg Tube Daily Discontinued Family History Relationship Condition Age at Onset Recorded Date/Time 09 Brother Family history of cardiac disorder Not Recorded 06/19/2016 12: 30am 09 Brother Family history of diabetes mellitus Not Recorded 06/18/2016 11: 12pm 09 Brother Family history of hypertension Not Recorded 06/18/2016 11:13pm 33 Father Family history of cardiac disorder Not Recorded 06/19/2016 12:30am 32 Mother Family history of diabetes mellitus Not Recorded 06/18/2016 11: 12pm 32 Mother Family history of hypertension Not Recorded 06/18/2016 11:13pm 09 Sister Family history of diabetes mellitus Not Recorded 06/18/2016 11: 12pm Social History Social History Problem Response Recorded Date/Time Onset Date Status Hx Psychiatric Problems No 08/27/2017 12:11am Not Applicable Not Applicable Hx Eating Disorder No 08/27/2017 12:11am Not Applicable Not Applicable Hx Substance Use Disorder No 08/27/2017 12:11am Not Applicable Not Applicable Hx Depression No 08/27/2017 12:11am Not Applicable Not Applicable Hx Alcohol Use No 08/27/2017 12:11am Not Applicable Not Applicable Hx Substance Use Treatment No 08/27/2017 12:11am Not Applicable Not Applicable Hx Physical Abuse No 08/27/2017 12:11am Not Applicable Not Applicable Smoking Status Start Date Stop Date Never Smoker Hospital Discharge Instructions No hospital discharge instruction information available. Plan of Care Discharge Date 02/04/18 6:06pm Disposition HOME, SELF-CARE Instructions/Education Provided Congestive Heart Failure Low Sodium Diet Prescriptions See Medication Section Referrals MAYRA LOPEZ MD (Internal Medicine) Order Date: 3 Weeks Entered Date: 02/04/2018 4:34pm Address: [address] [place] [address] MAXIMINO GONZALEZ MD (Cardiology) Order Date: 2 Weeks Entered Date: 02/04/2018 4:34pm Address: [address] [place] [address] Additional Instructions/Education FOLLOW UP WITH DR. LOPEZ AND DR. GONZALEZ ( CARDIOLOGY) INSTRUCTED. CALL EACH OFFICE TO SCHEDULE AN APPOINTMENT. RESUME DIABETIC AND LOW SODIUM/HEART HEALTHY DIET. MONITOR WEIGHT AT HOME Functional Status Query Response Date Recorded Assistive Devices None January 31, 2018 9:00pm Ambulation Ability Standby Assistance January 31, 2018 9:00pm Toileting Ability Minimum Assistance February 04, 2018 5:57pm Allergies, Adverse Reactions, Alerts No known allergies. Immunizations No immunization information available. Vital Signs Acute Vital Signs Vital Response Date/Time Temperature (Fahrenheit) 96.9 degrees F (97.6 - 99.5) 02/04/2018 5:43pm Pulse Pulse Rate (adult) 84 bpm (60 - 90) 02/04/2018 5:43pm Respiratory Rate 20 bpm (12 - 24) 02/04/2018 5:43pm Blood Pressure 151/67 mm Hg 02/04/2018 5:43pm Height 5 ft 4 in 01/31/2018 1:11pm Weight 225 lb 02/01/2018 11:04am Body Mass Index 38.6 kg/m^2 02/03/2018 9:49pm Results Laboratory Results Test Name Result Units Flags Reference Collection Date/Time Result Date/ Time Comments Hemoglobin A1c Percent 6.7 % 4.0-7.0 08/27/2017 5:44am 08/27/2017 6: 27am Triglycerides Level 86 MG/DL 0-149 08/27/2017 5:44am 08/27/2017 6:40am Cholesterol Level 135 MD/DL 0-199 08/27/2017 5:44am 08/27/2017 6:40am Less than 200 mg/dL Low Risk 201 - 239 mg/dL Borderline Risk 240 mg/dl and greater High Risk LDL Cholesterol 66 MG/DL 60-130 08/27/2017 5:44am 08/27/2017 6:40am HDL Cholesterol 52 MG/DL 40-60 08/27/2017 5:44am 08/27/2017 6:40am Cholesterol/HDL Ratio 2.6 L 3.0-3.6 08/27/2017 5:44am 08/27/2017 6: 40am Thyroid Stimulating Hormone (TSH) 1.524 uIU/mL 0.350-4.940 08/27/2017 5: 44am 08/27/2017 6:46am White Blood Count 7.09 x10e3/uL 4.8-10.8 02/03/2018 5:40am 02/03/2018 6 :27am Red Blood Count 3.91 x10e6/uL 3.6-5.1 02/03/2018 5:40am 02/03/2018 6: 27am Hemoglobin 9.7 g/dL L 12.0-16.0 02/03/2018 5:4002/03/2018 6:27am Hematocrit 31.8 % L 34.2-44.1 02/03/2018 5:4002/03/2018 6:27am Mean Corpuscular Volume 81.3 fL 81-99 02/03/2018 5:4002/03/2018 6: 27am Mean Corpuscular Hemoglobin 24.8 pg L 28-32 02/03/2018 5:402017 6:27am Mean Corpuscular Hemoglobin Concent 30.5 g/dL L 31-35 02/03/2018 5:4002/03/2018 6:27am Red Cell Distribution Width 16.9 % H 11.7-14.4 02/03/2018 5:402017 6:27am Platelet Count 216 x10e3/uL 140-360 02/03/2018 5:4002/03/2018 6: 27am Neutrophils (%) (Auto) 65.6 % 38.7-80.0 02/03/2018 5:4002/03/2018 6: 27am Lymphocytes (%) (Auto) 20.0 % 18.0-39.1 02/03/2018 5:4002/03/2018 6: 27am Monocytes (%) (Auto) 10.9 % 4.4-11.3 02/03/2018 5:02/03/2018 6: 27am Eosinophils (%) (Auto) 2.8 % 0.0-6.0 02/03/2018 5:4002/03/2018 6: 27am Basophils (%) (Auto) 0.4 % 0.0-1.0 02/03/2018 5:4002/03/2018 6:27am IM GRANULOCYTES % 0.3 % 0.0-1.0 02/03/2018 5:4002/03/2018 6:27am Neutrophils # (Auto) 4.7 2.1-6.9 02/03/2018 5:4002/03/2018 6:27am Lymphocytes # (Auto) 1.4 1.0-3.2 02/03/2018 5:4002/03/2018 6:27am Monocytes # (Auto) 0.8 0.2-0.8 02/03/2018 5:40am 02/03/2018 6:27am Eosinophils # (Auto) 0.2 0.0-0.4 02/03/2018 5:40am 02/03/2018 6:27am Basophils # (Auto) 0.0 0.0-0.1 02/03/2018 5:40am 02/03/2018 6:27am Absolute Immature Granulocyte (auto 0.02 x10e3/uL 0-0.1 02/03/2018 5: 40am 02/03/2018 6:27am Prothrombin Time 15.1 seconds H 11.9-14.5 01/31/2018 1:28pm 01/31/2018 2 :00pm Prothromb Time International Ratio 1.29 01/31/2018 1:28pm 2017 2:00pm Oral Anticoagulant Therapy INR Values: 1. Low Intensity Therapy 1.5 - 2.0 2. Moderate Intensity Therapy 2.0 - 3.0 3. High Intensity Therapy(1) 2.5 - 3.5 4. High Intensity Therapy(2) 3.0 - 4.0 5. Panic Value INR > 5.0 Activated Partial Thromboplast Time 36.2 seconds H 23.8-35.5 01/31/2018 1 :28pm 01/31/2018 2:00pm Urine Color YELLOW YELLOW 01/31/2018 6:20pm 01/31/2018 7:06pm Urine Clarity SL CLOUDY CLEAR 01/31/2018 6:20pm 01/31/2018 7:06pm Urine Specific [place] 1.020 1.010-1.025 01/31/2018 6:20pm 2017 7:06pm Urine pH 6 5 - 7 01/31/2018 6:20pm 01/31/2018 7:06pm Urine Leukocyte Esterase NEGATIVE NEGATIVE 01/31/2018 6:20pm 2017 7:06pm Urine Nitrite NEGATIVE NEGATIVE 01/31/2018 6:20pm 01/31/2018 7:06pm Urine Protein 2+ H NEGATIVE 01/31/2018 6:20pm 01/31/2018 7:06pm Urine Glucose (UA) NEGATIVE NEGATIVE 01/31/2018 6:20pm 01/31/2018 7: 06pm Urine Ketones NEGATIVE NEGATIVE 01/31/2018 6:20pm 01/31/2018 7:06pm Urine Urobilinogen 1 mg/dL 0.2 - 1 01/31/2018 6:20pm 01/31/2018 7:06pm Urine Bilirubin NEGATIVE NEGATIVE 01/31/2018 6:20pm 01/31/2018 7: 06pm Urine Blood NEGATIVE NEGATIVE 01/31/2018 6:20pm 01/31/2018 7:06pm Urine WBC NONE /HPF 0-5 01/31/2018 6:20pm 01/31/2018 7:13pm Urine RBC NONE /HPF 0-5 01/31/2018 6:20pm 01/31/2018 7:13pm Urine Bacteria MODERATE /HPF H NONE 01/31/2018 6:20pm 01/31/2018 7:13pm Urine Epithelial Cells FEW /LPF NONE 01/31/2018 6:20pm 01/31/2018 7: 13pm Urine Amorphous Sediment FEW FEW 01/31/2018 6:20pm 01/31/2018 7:13pm Sodium Level 145 mmol/L 136-145 02/03/2018 5:40am 02/03/2018 6:23am Potassium Level 3.3 mmol/L L 3.5-5.1 02/03/2018 5:40am 02/03/2018 6: 23am Chloride Level 102 mmol/L 98-107 02/03/2018 5:40am 02/03/2018 6:23am Carbon Dioxide Level 33 mmol/L H 22-29 02/03/2018 5:40am 02/03/2018 6: 23am Anion Gap 13.3 mmol/L 8-02/03/2018 5:40am 02/03/2018 6:23am Blood Urea Nitrogen 32 mg/dL H 7-26 02/03/2018 5:40am 02/03/2018 6:23am Creatinine 1.16 mg/dL H 0.57-1.11 02/03/2018 5:40am 02/03/2018 6:23am BUN/Creatinine Ratio 28 H 6-25 02/03/2018 5:40am 02/03/2018 6:23am Estimat Glomerular Filtration Rate 46 ML/MIN L 60- 02/03/2018 5:40am 6:23am Ranges were taken from the National Kidney Disease Education Program and the National Kidney Foundation literature. Reference ranges: 60 or greater: Normal 16-59 (for 3 consecutive months): Chronic kidney disease 15 or less: Kidney failure Glucose Level 58 mg/dL *L 74-118 02/03/2018 5:40am 02/03/2018 6:23am Results called to TOSHA WARRENRN at 0623 on 02/03/18 by Christine Figueroa. RB OK. Calcium Level 8.9 mg/dL 8.4-10.2 02/03/2018 5:40am 02/03/2018 6:23am Bedside Glucose 264 mg/dL H 70-120 02/04/2018 4:13pm 02/04/2018 5:25pm Meter ID: [id number] Magnesium Level 1.7 MG/DL 1.3-2.1 02/03/2018 5:40am 02/03/2018 6:42am Total Bilirubin 0.6 mg/dL 0.2-1.2 02/03/2018 5:40am 02/03/2018 6:23am Aspartate Amino Transf (AST/SGOT) 11 IU/L 5-34 02/03/2018 5:40am 2017 6:23am Alanine Aminotransferase (ALT/SGPT) 11 IU/L 0-55 02/03/2018 5:40am 6:23am Total Protein 5.9 g/dL L 6.5-8.1 02/03/2018 5:40am 02/03/2018 6:23am Albumin 2.4 g/dL L 3.5-5.0 02/03/2018 5:40am 02/03/2018 6:23am Globulin 3.5 g/dL 2.3-3.5 02/03/2018 5:40am 02/03/2018 6:23am Albumin/Globulin Ratio 0.7 L 0.8-2.0 02/03/2018 5:40am 02/03/2018 6: 23am Alkaline Phosphatase 66 IU/L 40-150 02/03/2018 5:40am 02/03/2018 6: 23am B-Type Natriuretic Peptide 885.7 pg/mL H 0-100 01/31/2018 1:28pm 2017 2:11pm Creatine Kinase 53 IU/L 29-168 02/01/2018 5:20am 02/01/2018 6:15am Creatine Kinase MB 0.60 ng/mL 0-5.0 02/01/2018 5:20am 02/01/2018 6: 21am Troponin I 0.006 ng/mL 0-0.300 02/01/2018 5:20am 02/01/2018 6:21am Procedures Procedure Status Date Provider(s) EGD with biopsy Active 03/05/18 LARRY HINDS MD X-ray of chest, two views Active 08/26/17 BREN GARCIA MD Encounters Encounter Location Arrival/Admit Date Discharge/Depart Date Attending Provider Discharged Inpatient [facility] 02/02/18 10:12am 6:06pm MAYRA LOPEZ MD Discharged Inpatient [facility] 08/28/17 2:51pm 08/30/17 2:44pm MAYRA LOPEZ MD
--- NOTE | 2018-04-30 16:20 | Operative Report ---
DATE OF PROCEDURE: February 28, 2018 PROCEDURE: Cardiac catheterization. INDICATIONS: Dyspnea on exertion. PREOPERATIVE ASSESSMENT: All relevant history, physical findings and diagnostic data was reviewed. The patient's prior social history and prior experience with anesthesia was reviewed prior to the procedure. Patient was deemed to be an appropriate candidate for moderate sedation. CONSENT: The risks, the benefits and alternatives of the procedure were explained to the patient prior to the procedure and informed consent was obtained. MEDICATIONS: Please see nursing notes for medications administered during the procedure. PROCEDURE DETAILS: Patient was brought to the cardiac catheterization laboratory in a fasting state. The patient was prepped and draped in a sterile fashion. Arterial access was obtained using the modified Seldinger technique. In the right radial artery diagnostic coronary angiogram was performed using a 5-Danish diagnostic catheter to engage both the LCA and RCA and right heart catheterization was performed through the right femoral vein using a Beresford-Micah catheter to obtain pressures and sats. Access to the right femoral vein was obtained using modified Seldinger technique under ultrasound guidance. All catheters were exchanged over a wire. Right radial arteriotomy was closed using a TR band. Right femoral vein was closed using manual compression. Case ended without any complications. FINDINGS: Left main coronary artery, there is 70% ostial calcified stenosis of the left main coronary artery. LAD, large LAD goes to the apex. There is a 50% lesion in the mid LAD. Left circumflex, non-dominant left circumflex artery. Two significant OM branches. No significant coronary artery disease. RCA, large dominant RCA with long 70% calcified stenosis of the proximal ostial RCA. Medium-sized RPDA and RPL branches. LV end-diastolic pressure was 18 mmHg. Right atrial pressure was 14/13/9. Right ventricular pressure 43/7/10. PA pressure of 41/18/25. Pulmonary capillary wedge pressure was 14 mmHg. COMPLICATIONS: None. ESTIMATED BLOOD LOSS: Approximately 20 mL. SPECIMEN REMOVED: None. IMPLANTS: None. RECOMMENDATIONS: 1. Usual post cath care until TR band removal. 2. Referral for an outpatient coronary artery bypass surgery. 3. Continue optimal medical therapy and risk factor control. 4. Follow up in the office after CABG. Thank you for this consult. Job#: [id number]
== END | disposition home or self-care (01) ==
LOC: CATH LAB 06:04
PROVIDERS: ATTEND Internal Medicine
DX: I25.118 Atherosclerotic heart disease of native coronary artery with other forms of angina pectoris (principal); I11.0 Hypertensive heart disease with heart failure; I50.32 Chronic diastolic (congestive) heart failure; E78.2 Mixed hyperlipidemia; E11.9 Type 2 diabetes mellitus without complications; Z01.812 Encounter for preprocedural laboratory examination; Z79.4 Long term (current) use of insulin; Z68.38 Body mass index [BMI] 38.0-38.9, adult; Z82.49 Family history of ischemic heart disease and other diseases of the circulatory system; Z82.3 Family history of stroke
CPT/HCPCS: 36415; 80053; 85025; 93460; C1769; J1644; J2001; J2250; J7030; Q9967

== ENCOUNTER 2019-07-28 16:25 | Inpatient (IN) | payer MEDICARE ==
[~2019-07-28] VITALS: Ht 162.6 cm; Wt 98.0 kg
[~2019-07-28 16:25] MED LIST changes: -FENTANYL CITRATE/PF 100MCG/2 ML INJ ONE; -HEPARIN SOD (PORCINE) 1000 UNIT/ML 30ML ONE; -HEPARIN SOD/SOD CHLORIDE 2,000 ML ONE; -IOPAMIDOL 370 MG/ML 200 ML INFUS..BTL INJ ONE; -LIDOCAINE HCL 2% LOCAL 20 ML VIAL ONE; -MIDAZOLAM HCL 2 MG/2 ML VIAL ONE; -NITROGLYCERIN/D5W 200 MCG/ML 250 ML ONE; -SODIUM CHLORIDE 0.9% 1000ML 1,000 ML ONE; -VERAPAMIL HCL 2.5 MG/ML 2 ML VIAL ONE
[2019-07-28 17:08] LABS: BASOPHILS % 0.4 % (0.0-1.0); EOSINOPHILS # (AUTO) 0.2 (0.0-0.4); EOSINOPHILS % 1.9 % (0.0-6.0); HEMATOCRIT 32.6 % (34.2-44.1); HEMOGLOBIN 9.9 g/dL (12.0-16.0); LYMPHOCYTES # (AUTO) 1.4 (1.0-3.2); LYMPHOCYTES % 15.7 % (18.0-39.1); MEAN CORPUSCULAR HEMOGLOBIN 24.4 pg (28-32); MEAN CORPUSCULAR HGB CONC 30.4 g/dL (31-35); MEAN CORPUSCULAR VOLUME 80.3 fL (81-99); MONOCYTES # (AUTO) 0.8 (0.2-0.8); MONOCYTES % 9.2 % (4.4-11.3); NEUTROPHILS # (AUTO) 6.5 (2.1-6.9); NEUTROPHILS % 72.5 % (38.7-80.0); PLATELET COUNT 275 x10e3/uL (140-360); RED BLOOD COUNT 4.06 x10e6/uL (3.6-5.1); RED CELL DISTRIBUTION WIDTH 17.6 % (11.7-14.4)
[2019-07-28 17:22] LABS: ALANINE AMINOTRANSFERASE 8 IU/L (0-55); ALBUMIN 3.5 g/dL (3.5-5.0); ALBUMIN/GLOBULIN RATIO 1.1 (0.8-2.0); ALKALINE PHOSPHATASE 83 IU/L (40-150); ANION GAP 15.8 mmol/L (8-16); BLOOD UREA NITROGEN 38 mg/dL (7-26); BUN/CREATININE RATIO 19 (6-25); CALCIUM 9.2 mg/dL (8.4-10.2); CARBON DIOXIDE 28 mmol/L (22-29); CHLORIDE 104 mmol/L (98-107); CREATINE KINASE 92 IU/L (29-168); CREATININE, SERUM 1.98 mg/dL (0.57-1.11); EST GLOMERULAR FILTRATION RATE 25 ML/MIN (60-); POTASSIUM 3.8 mmol/L (3.5-5.1); SODIUM 144 mmol/L (136-145)
[2019-07-28 17:24] LABS: GLUCOSE 43 mg/dL (74-118)
[2019-07-28] MEDS ORDERED: DEXTROSE 50% SYRINGE 50 ML IV STA ×2 (17:24→22:35)
--- NOTE | 2019-07-28 18:17 | Diagnostic Imaging Report ---
EXAMINATION: PA and lateral views of the chest. COMPARISON: None CLINICAL HISTORY: Shortness of breath DISCUSSION: Lines/tubes: Sternotomy wires Lungs: Pulmonary venous congestion Pleura: There is no pleural effusion or pneumothorax. Heart and mediastinum: Enlarged heart Bones and soft tissues: No acute bony abnormalities. IMPRESSION: Cardiomegaly with pulmonary venous congestion Signed by: Dr. Jayson Bianchi M.D. on 07/28/2019 6:15 PM
[2019-07-28] MEDS ORDERED: DEXTROSE 5% 1,000 ML IV ONE ×2 (18:45→22:45)
[2019-07-28] MEDS ORDERED: DEXTROSE 50% SYRINGE 50 ML IV PRN (18:45)
[2019-07-28] MEDS ORDERED: ONDANSETRON HCL INJ 2MG/ML 2ML 2 MG/ML VIAL IV PRN (18:45)
[2019-07-28] MEDS ORDERED: OCTREOTIDE ACETATE 0.05 MG/ML AMP SQ SCH (18:45)
[2019-07-28] MEDS ORDERED: FUROSEMIDE INJ 10 MG/ML 2 ML VIAL IV NR (19:00)
--- OUTSIDE RECORDS SUMMARY | 2019-07-28 19:46 | XMS REPORT | Summary of Care ---
Author Author Masha Calles Organization Unknown Address Unknown Phone Unavailable Care Team Providers Care Die Maker Electronic Name Role Phone Masha aClles Unavailable Unavailable JOHN YANES, MAYRA Lala Unavailable Unavailable MAXIMINO GONZALEZ MD Unavailable Unavailable Functional Status Name Dates Details Functional status health issues are not documented Status: Name Dates Details Cognitive status health issues are not documented Status: Problems Name Dates Details 3-vessel CAD (414.00, I25.10) Status: Active Bilateral carotid artery disease (447.9, I77.9) Status: Active Medications Name Dates Details Lasix 40 MG Oral Tablet Active Coreg TABS * Refills: 0 Active HydrALAZINE HCl - 25 MG Oral Tablet * Refills: 0 Active Synthroid 75 MCG Oral Tablet * Refills: 0 Active Losartan Potassium 50 MG Oral Tablet * Refills: 0 Active Pravachol 40 MG Oral Tablet * Refills: 0 Active Protonix 40 MG Oral Tablet Delayed Release * Refills: 0 Active HumaLOG 100 UNIT/ML Subcutaneous Solution * Refills: 0 Active Allergies and Adverse Reactions Name Dates Details No Known Allergies (Allergy) Status: Active Procedures Procedure Dates Details History of Coronary artery bypass graft Completed Immunization Name Dates Details Immunizations not documented Social History Name Dates Details - Status: Name Dates Details Never smoker Vital Signs Date Test Result Details [id number] BP Systolic 132 mm[Hg] Status: BP Diastolic 48 mm[Hg] Status: Height 65 in Status: Weight 215 lb Status: Body Mass Index Calculated 35.78 kg/m2 Status: Body Surface Area Calculated 2.04 m2 Status: Results Date Description Value Details Results not documented Plan of Care Name Dates Details Planned Observations Planned Goals not documented Planned Encounters Appointment; KIM ANDERSON M.D. On: 26-May-2018 15:15 Instructions Name Dates Details Instructions not documented Encounters Appointment; KIM ANDERSON M.D. Encounter Diagnosis: Problem not documented On: 24-Mar-2018 10:30 Appointment; DR MONICA MURPHY Encounter Diagnosis: Problem not documented On: 07-Apr-2018 15:30 Appointment; KIM ANDERSON M.D. Encounter Diagnosis: Problem not documented On: 19-May-2018 13:30
[2019-07-28 20:07] LABS: BILIRUBIN,URINE NEGATIVE (NEGATIVE); CLARITY,URINE CLEAR (CLEAR); COLOR,URINE YELLOW (YELLOW); KETONES,URINE NEGATIVE (NEGATIVE); LEUKOCYTE ESTERASE ,URINE NEGATIVE (NEGATIVE); NITRITE,URINE NEGATIVE (NEGATIVE); PROTEIN,URINE DIPSTICK NEGATIVE (NEGATIVE); URINE UROBILINOGEN 0.2 mg/dL (0.2 - 1)
[2019-07-28 20:19] LABS: BACTERIA,URINE FEW /HPF; EPITHELIAL CELLS,URINE FEW /LPF
--- NOTE | 2019-07-28 22:13 | NUR ---
DR JOHN BOUCHER
[2019-07-28] MEDS: INSULIN LISPRO 100 UNIT/1 ML 3ML VIAL SQ SCH (22:54)
[2019-07-29 03:02] LABS: CREATINE KINASE 94 IU/L (29-168)
--- NOTE | 2019-07-29 05:51 | History and Physical ---
REASON FOR ADMISSION: Acute on chronic diastolic heart failure and hypoglycemia. HISTORY OF PRESENT ILLNESS: The patient is a 74-year-old lady who has a history of diastolic heart failure, who presented with a 2-day history of increasing shortness of breath, orthopnea, as well as some hypoglycemia, where she was found in the emergency room with elevated BNP as well as chest x-ray showing pulmonary edema, so she has been admitted for further evaluation. Her hypoglycemia was resolved with proper treatment in the emergency room. PAST MEDICAL HISTORY: Significant for chronic kidney disease stage 3, diabetes, hypertension, chronic diastolic heart failure, hypothyroidism, hyperlipidemia, chronic anemia. MEDICATIONS: See MAR. ALLERGIES: NONE. SOCIAL HISTORY: Nonsmoker, nondrinker, lives at home. FAMILY HISTORY: Hypertension. PHYSICAL EXAMINATION: VITAL SIGNS: Temperature 98.6, pulse 83, blood pressure 146/72, sats 99% on nasal cannula. GENERAL: She is no apparent distress, lying in bed. NECK: Supple. No lymphadenopathy. CARDIOVASCULAR: Regular rate and rhythm. LUNGS: Decreased breath sounds bilaterally. ABDOMEN: Good bowel sounds. Soft, nontender. EXTREMITIES: No clubbing or cyanosis. NEUROLOGIC: Nonfocal. ASSESSMENT AND PLAN: 1. Acute on chronic diastolic heart failure. Continue with current care with diuretics and consult her dispatcher electric power, Dr. Rivas. 2. Anemia. Continue to monitor. 3. Chronic kidney disease stage 3. Continue to monitor. 4. Hypertension. Continue with her medications. 5. Hyperlipidemia. Continue with her cholesterol medicine. 6. Diabetes. Continue with current care and sugar monitoring. 7. Hypoglycemia, which is resolved. 8. Hypothyroidism. Continue with her medication. 9. Obesity. Continue with diet. Please see hospital chart for full details. MD NORMA Adan/MODL /[id number]
[2019-07-29] MEDS ORDERED: PANTOPRAZOLE SOD 40 MG TABEC PO SCH (06:00)
[2019-07-29 06:17] LABS: BASOPHILS % 0.4 % (0.0-1.0); EOSINOPHILS # (AUTO) 0.2 (0.0-0.4); EOSINOPHILS % 2.6 % (0.0-6.0); HEMATOCRIT 30.2 % (34.2-44.1); HEMOGLOBIN 9.3 g/dL (12.0-16.0); LYMPHOCYTES # (AUTO) 1.6 (1.0-3.2); LYMPHOCYTES % 22.9 % (18.0-39.1); MEAN CORPUSCULAR HEMOGLOBIN 24.5 pg (28-32); MEAN CORPUSCULAR HGB CONC 30.8 g/dL (31-35); MEAN CORPUSCULAR VOLUME 79.7 fL (81-99); MONOCYTES # (AUTO) 0.7 (0.2-0.8); MONOCYTES % 9.5 % (4.4-11.3); NEUTROPHILS # (AUTO) 4.5 (2.1-6.9); NEUTROPHILS % 64.3 % (38.7-80.0); PLATELET COUNT 222 x10e3/uL (140-360); RED BLOOD COUNT 3.79 x10e6/uL (3.6-5.1); RED CELL DISTRIBUTION WIDTH 17.6 % (11.7-14.4)
[2019-07-29] MEDS: LEVOTHYROXINE SODIUM 75 MCG TAB PO SCH (06:17)
[2019-07-29 06:37] LABS: ALBUMIN 3.1 g/dL (3.5-5.0); ANION GAP 14.3 mmol/L (8-16); CALCIUM 8.8 mg/dL (8.4-10.2); CREATININE, SERUM 1.94 mg/dL (0.57-1.11); POTASSIUM 3.3 mmol/L (3.5-5.1)
[2019-07-29] MEDS: INSULIN LISPRO 100 UNIT/1 ML 3ML VIAL SQ SCH ×6 (07:29→22:00)
[2019-07-29] MEDS: PANTOPRAZOLE SOD 40 MG TABEC PO SCH (07:29)
[2019-07-29] MEDS: LOSARTAN POTASSIUM 100 MG TAB PO SCH (07:31)
[2019-07-29] MEDS: HYDRALAZINE HCL 25 MG TAB PO SCH ×3 (07:31→22:00)
[2019-07-29] MEDS: SIMVASTATIN 20 MG TAB PO SCH (07:31)
[2019-07-29] MEDS: CARVEDILOL 3.125 MG TAB PO SCH ×2 (08:33→16:50)
[2019-07-29] MEDS: ASPIRIN 81 MG ENTERIC COATED PO SCH (08:33)
[2019-07-29] MEDS: FUROSEMIDE INJ 10 MG/ML 2 ML VIAL IV SCH ×2 (08:33→16:50)
[2019-07-29] MEDS: METOLAZONE 5 MG TAB PO SCH (09:00)
[2019-07-29] MEDS ORDERED: LOW DOSE ASPIRI81 MG PO (09:54)
[2019-07-29] MEDS ORDERED: CLOPIDOGREL75 MG PO (09:54)
[2019-07-29] MEDS ORDERED: METOPROLOL SUCC25 MG PO (09:54)
[2019-07-29] MEDS ORDERED: AMLODIPINE BESYL5 MG PO (09:54)
[2019-07-29] MEDS ORDERED: GLIMEPIRIDE4 MG PO (09:54)
--- NOTE | 2019-07-29 12:04 | Consultation ---
DATE OF CONSULTATION: 07/29/2019 Cardiology Consultation REASON FOR CONSULTATION: Shortness of breath. HISTORY OF PRESENT ILLNESS: This is a 74-year-old woman with a history of coronary artery disease status post coronary artery bypass graft surgery in March of 2018, percutaneous coronary intervention to the right coronary artery, hypertension, hyperlipidemia, obesity, chronic diastolic heart failure, and diabetes mellitus. She states for the last couple days, she is more short of breath. She has moderate intensity, worsened with exertion, can occur at rest, associated with some orthopnea. She states that she has increased her diuretics over the last week, taking 2 tablets of her Lasix twice a day. She does not know the current dosage. She is also noted to have hypoglycemia in the emergency department. She states that she is feeling better currently and denies any chest pain, palpitations, or syncopal events. REVIEW OF SYSTEMS: A 12-point review of system was conducted, is negative except as stated above in the HPI. PAST MEDICAL HISTORY: As stated above in the HPI. PAST SURGICAL HISTORY: Bypass surgery. SOCIAL HISTORY: No illicit drug, alcohol, or tobacco use. PAST FAMILY HISTORY: Noncontributory to current illness. ALLERGIES: NO KNOWN DRUG ALLERGIES. MEDICATIONS: See medication reconciliation form. PHYSICAL EXAMINATION: VITAL SIGNS: Temperature is 96.9, heart rate is 55, respirations are 16, blood pressure is 150/59, and oxygen saturation is 100% on room air. GENERAL: She is well-appearing, well built, in no apparent distress. Alert and oriented x3. HEAD: Normocephalic and atraumatic. EYES: The extraocular muscles are intact. Conjunctivae are clear. NECK: No JVD. No bruits. CARDIOVASCULAR: She is bradycardic. Regular rhythm. No murmurs. LUNGS: Diminished breath sounds at bases. ABDOMEN: Soft, nontender, and nondistended. EXTREMITIES: No edema. VASCULAR: 2+ pulses. SKIN: Warm, dry, and intact. NEUROLOGIC: No focal deficits noted. Cranial nerves grossly intact. PSYCHIATRIC: Normal mood and affect. LABORATORY DATA: Reviewed. Hemoglobin is 9.3 and white blood cell count is normal. Potassium is 3.3 and creatinine is 1.94. BNP is elevated at 458. Troponins are negative x2. Chest x-ray shows cardiomegaly with pulmonary venous congestion. Last echocardiogram shows preserved left ventricular systolic function. IMPRESSION: 1. Hckuh-gm-zkaojtm diastolic heart failure. 2. Pulmonary edema. 3. Elevated BNP. 4. Coronary artery disease, status post percutaneous coronary intervention and coronary artery bypass graft surgery. 5. Hypertension. 6. Hyperlipidemia. 7. Chronic kidney disease. 8. Hypoglycemia, resolved. RECOMMENDATIONS: For heart failure, continue intravenous Lasix. Likely, we will need to add metolazone 5 mg every other day. We will give the first dose now. Continue all other home antihypertensives. Hypoglycemia, diabetes treatment per primary team. Continue statin, aspirin for her coronary artery disease in addition to her antiplatelet regimen. We will continue to follow along with you. Jonathan Bhatia DO BM/MODL /[id number]
[2019-07-29 12:11] LABS: CREATINE KINASE MB 1.4 ng/mL (0-5.0)
[2019-07-29 12:52] VITALS: BP 142/54
--- NOTE | 2019-07-29 12:58 | NUR ---
RECEIVED PATIENT FROM ER, SHE IS ALERT AND ORIENTED X4, VERBALIZING NEEDS, DENIES PAIN, HAS A WOUND TO LEFT GLUTEAL APPEARS LIKED A BLISTER THAT POOPED PLACED WOUND CARE CONSULT. ORIENTED TO ROOM AND USE OF CALL LIGHT. REPORTS THAT SHE HAD HER FLU VACCINE AND PNEUMONIA IN DR. HURLEY'S OFFICE I CALLED DR. TIM OFFICE TO INQUIRE OF FLU AND PNEUMONIA VACCINE OFFICE CLOSED. WILL CALL AGAIN. BELONGINGS AND CALL LIGHT WITHIN REACH INSTRUCTED TO CALL WHEN NEEDING ASSISTANCE.
[2019-07-29 14:25] VITALS: BP 142/54
[2019-07-29 16:38] VITALS: BP 142/54
--- NOTE | 2019-07-29 19:20 | NUR ---
Patient visited in room during nursing rounds. Patient alert and oriented x3. Ambulatory in room prn. Daughter at bedside. Pt denies any pain or dyspnea at this time. Call bullard within reach. Will monitor closely.
[2019-07-29 19:36] LABS: CREATINE KINASE MB 1.5 ng/mL (0-5.0)
[2019-07-29 20:00] VITALS: BP 146/57
[2019-07-29 21:00] VITALS: BP 146/57
[2019-07-29] MEDS ORDERED: INSULIN GLARGINE 100 UNITS/ML VIAL SQ SCH (21:00)
[2019-07-30] VITALS (7 sets, daily range): BP systolic 129–157; BP diastolic 43–65
[2019-07-30] MEDS: LEVOTHYROXINE SODIUM 75 MCG TAB PO SCH (06:14)
[2019-07-30] MEDS: PANTOPRAZOLE SOD 40 MG TABEC PO SCH (06:14)
[2019-07-30 06:22] LABS: BASOPHILS % 0.6 % (0.0-1.0); EOSINOPHILS # (AUTO) 0.3 (0.0-0.4); EOSINOPHILS % 3.8 % (0.0-6.0); HEMATOCRIT 30.6 % (34.2-44.1); HEMOGLOBIN 9.1 g/dL (12.0-16.0); LYMPHOCYTES # (AUTO) 1.4 (1.0-3.2); MEAN CORPUSCULAR HEMOGLOBIN 23.9 pg (28-32); MEAN CORPUSCULAR HGB CONC 29.7 g/dL (31-35); MEAN CORPUSCULAR VOLUME 80.5 fL (81-99); MONOCYTES # (AUTO) 0.7 (0.2-0.8); MONOCYTES % 10.7 % (4.4-11.3); NEUTROPHILS # (AUTO) 4.2 (2.1-6.9); NEUTROPHILS % 63.7 % (38.7-80.0); PLATELET COUNT 225 x10e3/uL (140-360); RED CELL DISTRIBUTION WIDTH 17.5 % (11.7-14.4)
[2019-07-30 06:45] LABS: ALKALINE PHOSPHATASE 82 IU/L (40-150); ANION GAP 12.9 mmol/L (8-16); BLOOD UREA NITROGEN 41 mg/dL (7-26); BUN/CREATININE RATIO 19 (6-25); CALCIUM 8.7 mg/dL (8.4-10.2); CARBON DIOXIDE 29 mmol/L (22-29); CHLORIDE 102 mmol/L (98-107); CREATININE, SERUM 2.18 mg/dL (0.57-1.11); EST GLOMERULAR FILTRATION RATE 22 ML/MIN (60-); GLUCOSE 102 mg/dL (74-118); POTASSIUM 3.9 mmol/L (3.5-5.1); SODIUM 140 mmol/L (136-145)
[2019-07-30 06:52] LABS: ALANINE AMINOTRANSFERASE < 6 IU/L (0-55)
[2019-07-30] MEDS: INSULIN LISPRO 100 UNIT/1 ML 3ML VIAL SQ SCH ×2 (07:30→09:30)
[2019-07-30] MEDS: ASPIRIN 81 MG ENTERIC COATED PO SCH (09:27)
[2019-07-30] MEDS: FUROSEMIDE INJ 10 MG/ML 2 ML VIAL IV SCH ×2 (09:27→17:28)
[2019-07-30] MEDS: CARVEDILOL 3.125 MG TAB PO SCH ×2 (09:28→17:29)
[2019-07-30] MEDS: SIMVASTATIN 20 MG TAB PO SCH (09:29)
[2019-07-30] MEDS: LOSARTAN POTASSIUM 100 MG TAB PO SCH (09:29)
[2019-07-30] MEDS ORDERED: ACETAMINOPHEN 325 MG TAB PO PRN (16:30)
[2019-07-30] MEDS ORDERED: DEXTROSE 50% SYRINGE 50 ML IV ONE ×2 (17:26→17:30)
--- NOTE | 2019-07-30 18:36 | Progress Note ---
DATE: 07/30/2019 SUBJECTIVE: The patient reports improvement in her shortness of breath. Denies any chest pain. Glucose was low today. OBJECTIVE: VITAL SIGNS: She is afebrile. Heart rate and blood pressure are within normal limits. Oxygen saturation is normal. GENERAL: Well-appearing, in no apparent distress. CARDIOVASCULAR: Regular rate and rhythm. LUNGS: Clear to auscultation. ABDOMEN: Soft, nontender, and nondistended. EXTREMITIES: No clubbing, cyanosis, or edema. LABORATORY DATA: Showed hypoglycemia. IMPRESSION: 1. Cktzj-oj-mrawlws diastolic heart failure. 2. Coronary artery disease, status post percutaneous coronary intervention and coronary artery bypass graft surgery. 3. Hypoglycemia. RECOMMENDATIONS: Continue intravenous Lasix and metolazone every other day. Continue all current cardiovascular medications. Monitor on telemetry. Hypoglycemia treatment per primary team. The patient likely may be able to discharged tomorrow on new diuretic dosing. She may be discharged on Lasix 40 mg p.o. b.i.d. and metolazone 5 mg p.o. every other day. DO MARLIN Christensen/RONALDO /[id number]
[2019-07-31] VITALS (10 sets, daily range): BP systolic 135–157; BP diastolic 42–70
[2019-07-31 05:46] LABS: BASOPHILS % 0.6 % (0.0-1.0); EOSINOPHILS # (AUTO) 0.2 (0.0-0.4); EOSINOPHILS % 3.1 % (0.0-6.0); HEMATOCRIT 30.1 % (34.2-44.1); HEMOGLOBIN 8.8 g/dL (12.0-16.0); LYMPHOCYTES # (AUTO) 1.4 (1.0-3.2); LYMPHOCYTES % 20.5 % (18.0-39.1); MEAN CORPUSCULAR HEMOGLOBIN 23.8 pg (28-32); MEAN CORPUSCULAR HGB CONC 29.2 g/dL (31-35); MEAN CORPUSCULAR VOLUME 81.6 fL (81-99); MONOCYTES # (AUTO) 0.7 (0.2-0.8); MONOCYTES % 9.8 % (4.4-11.3); NEUTROPHILS # (AUTO) 4.4 (2.1-6.9); NEUTROPHILS % 65.9 % (38.7-80.0); PLATELET COUNT 225 x10e3/uL (140-360); RED BLOOD COUNT 3.69 x10e6/uL (3.6-5.1); RED CELL DISTRIBUTION WIDTH 17.5 % (11.7-14.4)
[2019-07-31] MEDS: PANTOPRAZOLE SOD 40 MG TABEC PO SCH (06:04)
[2019-07-31] MEDS: LEVOTHYROXINE SODIUM 75 MCG TAB PO SCH (06:04)
[2019-07-31 06:08] LABS: ALBUMIN 2.9 g/dL (3.5-5.0); ALBUMIN/GLOBULIN RATIO 0.9 (0.8-2.0); ANION GAP 15.2 mmol/L (8-16); CALCIUM 8.6 mg/dL (8.4-10.2); CREATININE, SERUM 2.66 mg/dL (0.57-1.11); MAGNESIUM 2.1 MG/DL (1.3-2.1); POTASSIUM 4.2 mmol/L (3.5-5.1)
--- NOTE | 2019-07-31 06:56 | NUR ---
Received bedside shift report from off going nurse. Patient is resting in bed. No acute distress noted. Call light within reach, bed in the lowest position.
--- NOTE | 2019-07-31 07:34 | NUR ---
WOUND CARE CONSULT 74 YO FEMALE HX CHF ,DYSPNEA,HYPOGLYCEMIA DESIREE: 21 ON CONSERVATIVE PUP STATUS AND INTERVENTIONS VISCO MATTRESS LABS: WBC- 6.62,HGB- 9.1,GLUCOSE- 102 SKIN ASSESSMENT COMPLETE PATIENT PRESENTS WITH RAISED SKIN GROWTH AREA UPPER LEFT THIGH / GLUTEAL 1.8CM X1.5CM X.2CM REDNESS NOTED ANGELA SKIN RECOMMENDATIONS: NURSING TO CONTINUE TO MAINTAIN CONSERVATIVE PUP STATUS AND INTERVENTIONS AND VISCO SURFACE NURSING TO CONTINUE TO ASSIST PATIENT OUT OF BED FOR MEALS AND MUCH TOLERATED NURSING TO CONTINUE TO INSURE PATIENT IS RECEIVING NUTRITIONAL SUPPORT TO PROMOTE SKIN HEALTH AND APPROPRIATE WOUND HEALING NURSING TO CLEAN OPEN SKIN LESION LEFT UPPER THIGH / GLUTEAL AREA DAILY WITH NS AND APPLY BACITRACIN OINTMENT TO WOUND WITH ALLEVYN FOAM DRESSING Addendum: 07/31/19 at 0746 by Leo Morejon RN Amended: Links added.
[2019-07-31] MEDS: METOLAZONE 5 MG TAB PO SCH (09:00)
[2019-07-31] MEDS: ASPIRIN 81 MG ENTERIC COATED PO SCH (09:19)
[2019-07-31] MEDS: FUROSEMIDE INJ 10 MG/ML 2 ML VIAL IV SCH ×2 (09:19→16:44)
[2019-07-31] MEDS: LOSARTAN POTASSIUM 100 MG TAB PO SCH (09:20)
[2019-07-31] MEDS: SIMVASTATIN 20 MG TAB PO SCH (09:20)
[2019-07-31] MEDS: CARVEDILOL 3.125 MG TAB PO SCH ×2 (09:20→16:44)
[2019-07-31] MEDS: BACITRACIN ZINC 15 GM OINT TOP SCH (10:05)
--- NOTE | 2019-07-31 12:07 | NUR ---
Notified Dr. Galicia of [facility] and waiting for chain saw mechanic to come see patient. No new orders received.
[2019-07-31 15:15] LABS: FREE T4 (FREE THYROXINE) 1.07 ng/dL (0.8-1.8); THYROID STIMULATING HORMONE 1.04 uIU/mL (0.350-4.940)
--- NOTE | 2019-07-31 15:35 | Consultation ---
DATE OF CONSULTATION: 07/31/2019 CONSULT REQUESTED BY: Dr. Maxim Galicia. The consultation is requested to Red Josue MD, Plastic Surgery. CHIEF COMPLAINT: Left ischial wound. HISTORY OF PRESENT ILLNESS: The patient is a 74-year-old female, who states that she developed the wound on the left ischial area approximately 4 to 5 weeks ago. She denies any antecedent accident or injury, which could account for the presence of the wound. She states that she and the family tried to get the wound to heal on its own by using soap and water and topical antimicrobial ointments. However, the wound persisted. She was seen by her PCP and given a cream to place around it, but not on it. She is unable to recall what cream was prescribed. She states that she came to the hospital earlier this week with exacerbation of her cardiac and respiratory symptoms and now that she is here in the hospital, wound consult is requested to evaluate and best treat the wound. PAST MEDICAL HISTORY: As I said above. PAST SURGICAL HISTORY: Noncontributory. PHYSICAL EXAMINATION: The patient is afebrile. Vital signs are stable. BP is 142/45. On pertinent physical exam, there is a 2.5 to 3 cm area on the left ischial area. It is somewhat hemorrhagic and appears to be stage II with depth through the superficial subcutaneous tissue. There is no surrounding erythema around the wound. There is no suppurative discharge from the wound. There are no wound cultures that were performed. IMPRESSION: This is a stage II partial thickness most likely pressure sore in its early stages. The optimum treatment would be for offloading and keep the patient off the left ischial area as she is somewhat immobile due to her cardiac and respiratory status. We will start daily dressing changes consisting of collagen based dressings to try and promote healing of the area. We will follow this patient along while she is in the hospital. Your expression of professional confidence is greatly appreciated. Red Josue MD ER/MODL /[id number]
--- NOTE | 2019-07-31 15:45 | NUR ---
Visit made by CHRISTINA Valenzuela. Boat Rental Clerk provided pastoral presence, hospitality, and supportive listening. Boat Rental Clerk informed pt/family of the scope of Data Integrity Consultant Services and availability. JOSSIE SOUTH Boat Rental Clerk Spiritual Care Department O: [phone] Pager: [phone] ([phone] number calling from)
[2019-07-31] MEDS: INSULIN LISPRO 100 UNIT/1 ML 3ML VIAL SQ SCH ×4 (16:42→21:00)
--- NOTE | 2019-07-31 19:30 | NUR ---
patient received awake, alert, lying quietly in bed. vss. no c/o pain noted. pm assessment complete. patient instructed to call for assistance when needed.
--- NOTE | 2019-07-31 19:34 | NUR ---
BEDSIDE SHIFT REPORT GIVEN TO ONCOMING NURSE. PATIENT IS IN STABLE CONDITION. CALL LIGHT WITHIN REACH. BED IN THE LOWEST POSITION.
--- NOTE | 2019-07-31 20:11 | Progress Note ---
DATE: 07/31/2019 Cardiology Progress Note. SUBJECTIVE: The patient is feeling overall better. Denies any chest pain or shortness of breath. OBJECTIVE: VITAL SIGNS: Temperature is 96, heart rate is 59, respirations are 20, blood pressure is 140/58, and ox saturation 95% on room air. GENERAL: Well appearing, no apparent distress. CARDIOVASCULAR: Regular rate and rhythm. LUNGS: Clear to auscultation anteriorly, mildly diminished breath sounds at bases. ABDOMEN: Soft, nontender, nondistended. EXTREMITIES: Trace edema. LABORATORY DATA: Reviewed. Hemoglobin 8.8. Creatinine today was up at 2.66. TELEMETRY: Monitoring revealed normal sinus rhythm. IMPRESSION: 1. Trbdr-xu-fjsgmtr diastolic heart failure. 2. Coronary artery disease status post coronary artery bypass graft surgery and percutaneous coronary intervention. 3. Episodes of hypoglycemia. 4. Acute on chronic kidney disease. RECOMMENDATION: Decrease Lasix dosage. Metolazone was added, however, has contributed to acute kidney injury. We will discontinue this. We will monitor her in's and out's and daily creatinines. Resume all other cardiovascular medications. Jonathan Bhatia DO BM/MODL /[id number]
--- NOTE | 2019-07-31 20:53 | NUR ---
blood sugar 176. patient refuses insulin at this time.
--- NOTE | 2019-07-31 22:16 | Consultation ---
DATE OF CONSULTATION: 07/31/2019 Endocrine Consultation Thank you very much for referring this patient. HISTORY OF PRESENT ILLNESS: This is a 74-year-old lady, who was referred to me for evaluation of uncontrolled diabetes mellitus. The patient reportedly is a known diabetic for almost 20 years and takes a combination of the Lantus insulin about 36 units at bedtime and Humalog about 13 units with each meal. She came to the hospital with history of shortness of breath and chest discomfort. She does have history of coronary artery disease status post CABG, chronic renal insufficiency, hypertension, and hyperlipidemia. She is on losartan 50 mg once daily, Zocor 40 mg once daily, and Lasix. The patient also has history of hypothyroid for which she is on Synthroid 0.075 mg once daily. PHYSICAL EXAMINATION: GENERAL: Today, the patient is alert, awake, little bit apprehensive. She is moderately overweight. VITAL SIGNS: Her heart rate is around 78 and blood pressure 140/80 mmHg. HEENT: Essentially unremarkable. Thyroid is palpable. Clinically, she is near euthyroid. CHEST: Bilateral vesicular breathing. She has good bilateral bronchospasm and basilar rales. CARDIOVASCULAR: First and second heart sounds. There is no third or fourth heart sounds. Ejection systolic murmur is grade 2/6. 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 LABORATORY DATA: Her blood sugars have been fluctuating quite significantly. She has been taken off their routine insulin schedule. CLINICAL IMPRESSION: Diabetes mellitus type 2, uncontrolled with complications; hypoglycemia; coronary artery disease; congestive cardiac failure, status post coronary artery bypass graft; and chronic renal failure. PLAN: At this time is to start her back on the Lantus insulin in the morning and Humalog with each meal and a smaller dose. We will do a hemoglobin A1c and thyroid function test. Thank you for referring this patient. I will follow this patient with you. MD ATYLA Dennison/RONALDO /[id number]
[2019-08-01] VITALS (8 sets, daily range): BP systolic 119–169; BP diastolic 57–72
[2019-08-01] MEDS: INSULIN GLARGINE 100 UNITS/ML VIAL SQ SCH (05:40)
[2019-08-01] MEDS: LEVOTHYROXINE SODIUM 75 MCG TAB PO SCH (05:40)
--- NOTE | 2019-08-01 07:00 | NUR ---
RECEIVED BEDSIDE SHIFT REPORT FROM OFF GOING NURSE. PATIENT IS RESTING IN BED, NO ACUTE DISTRESS NOTED. CALL LIGHT WITHIN REACH. BED IN THE LOWEST POSITION.
[2019-08-01] MEDS: INSULIN LISPRO 100 UNIT/1 ML 3ML VIAL SQ SCH ×7 (07:30→21:00)
[2019-08-01] MEDS: PANTOPRAZOLE SOD 40 MG TABEC PO SCH (08:18)
[2019-08-01] MEDS: CARVEDILOL 3.125 MG TAB PO SCH ×2 (08:43→16:35)
[2019-08-01] MEDS: LOSARTAN POTASSIUM 100 MG TAB PO SCH (08:43)
[2019-08-01] MEDS: FUROSEMIDE INJ 10 MG/ML 2 ML VIAL IV SCH ×2 (08:43→16:32)
[2019-08-01] MEDS: SIMVASTATIN 20 MG TAB PO SCH (08:43)
[2019-08-01] MEDS: ASPIRIN 81 MG ENTERIC COATED PO SCH (08:43)
--- NOTE | 2019-08-01 12:34 | Progress Note ---
DATE: 08/01/2019 SUBJECTIVE: A 74-year-old female, who comes in with dwwky-kl-pvpkiuk diastolic heart failure. The patient is currently doing better, was seen by Endocrinology yesterday. Diabetes, blood sugars are very erratic. No chest pain or shortness of breath. No nausea, vomiting, diarrhea, or constipation. The patient is currently doing better. OBJECTIVE: VITAL SIGNS: Temperature is 96.3, pulse of 75, respirations of 20, blood pressure is 159/68, and pulse oximetry of 94%. HEENT: Normocephalic and atraumatic. Pupils are reactive to light and accommodation. CVS: S1 and S2 normal. Regular rate and rhythm. ABDOMEN: Nontender, nondistended. EXTREMITIES: No clubbing. No cyanosis. Trace edema. LABORATORY VALUES: From yesterday hemoglobin of 8.8, hematocrit 30.1. Glucose of . A1c was 6.2. ASSESSMENT: Ms. Amanda Beck with: 1. Kkugt-se-uwlvolm diastolic dysfunction. 2. Coronary artery status with history of CABG. 3. Hyperglycemic episode and also ckvmx-zv-fmsozop kidney injury. PLAN: Continue to monitor the patient's blood sugars. Discharge depending on Dr. Galicia and Dr. Bhatia. Further recommendation per clinical course. The patient also has a stage III partial- thickness sore in the ischial area. We will continue to monitor the patient. Dr. Josue has evaluated the patient. MD VASYL MixJ/MODL /[id number]
[2019-08-01] MEDS: BACITRACIN ZINC 15 GM OINT TOP SCH (14:30)
[2019-08-01] MEDS ORDERED: ONDANSETRON HCL 4 MG ORAL DISINTEGRATING TAB PO PRN (17:15)
--- NOTE | 2019-08-01 19:15 | NUR ---
patient received awake, alert, lying quietly in bed. no c/o pain noted. pm assessment complete. patient instructed to call for assistance when needed.
--- NOTE | 2019-08-01 19:23 | NUR ---
BEDSIDE SHIFT REPORT GIVEN TO ONCOMING NURSE. PATIENT IS RESTING IN BED. NO ACUTE DISTRESS NOTED. DENIES PAIN OR DISCOMFORT. CALL LIGHT WITHIN REACH. BED IN THE LOWEST POSITION.
--- NOTE | 2019-08-01 21:00 | NUR ---
blood sugar 201. 4 units humalog given per sliding scale. pm snack given at this time.
[2019-08-02 01:11] VITALS: BP 169/58
--- NOTE | 2019-08-02 05:00 | NUR ---
blood sugar 116. 7 units scheduled lantus given at this time.
[2019-08-02 05:04] VITALS: BP 161/57
[2019-08-02] MEDS: INSULIN GLARGINE 100 UNITS/ML VIAL SQ SCH (05:55)
[2019-08-02] MEDS: LEVOTHYROXINE SODIUM 75 MCG TAB PO SCH (05:55)
--- NOTE | 2019-08-02 06:50 | NUR ---
RECEIVED PATIENT RESTING IN BED. NO ACUTE DISTRESS NOTED. DENIES PAIN OR DISCOMFORT AT THIS TIME. CALL LIGHT WITHIN REACH. BED IN THE LOWEST POSITION.
[2019-08-02 07:04] LABS: BASOPHILS % 0.3 % (0.0-1.0); EOSINOPHILS # (AUTO) 0.2 (0.0-0.4); EOSINOPHILS % 3.4 % (0.0-6.0); HEMATOCRIT 33.2 % (34.2-44.1); HEMOGLOBIN 9.7 g/dL (12.0-16.0); LYMPHOCYTES # (AUTO) 1.5 (1.0-3.2); LYMPHOCYTES % 22.7 % (18.0-39.1); MEAN CORPUSCULAR HEMOGLOBIN 23.9 pg (28-32); MEAN CORPUSCULAR HGB CONC 29.2 g/dL (31-35); MEAN CORPUSCULAR VOLUME 81.8 fL (81-99); MONOCYTES # (AUTO) 0.7 (0.2-0.8); MONOCYTES % 10.4 % (4.4-11.3); NEUTROPHILS # (AUTO) 4.1 (2.1-6.9); NEUTROPHILS % 62.9 % (38.7-80.0); PLATELET COUNT 236 x10e3/uL (140-360); RED BLOOD COUNT 4.06 x10e6/uL (3.6-5.1); RED CELL DISTRIBUTION WIDTH 17.4 % (11.7-14.4)
[2019-08-02 07:23] LABS: ANION GAP 15.1 mmol/L (8-16); CALCIUM 9.2 mg/dL (8.4-10.2); POTASSIUM 4.1 mmol/L (3.5-5.1)
[2019-08-02] MEDS: INSULIN LISPRO 100 UNIT/1 ML 3ML VIAL SQ SCH ×4 (07:30→12:22)
[2019-08-02] MEDS: ASPIRIN 81 MG ENTERIC COATED PO SCH (08:26)
[2019-08-02] MEDS: PANTOPRAZOLE SOD 40 MG TABEC PO SCH (08:26)
[2019-08-02] MEDS: SIMVASTATIN 20 MG TAB PO SCH (08:28)
[2019-08-02] MEDS: CARVEDILOL 3.125 MG TAB PO SCH ×2 (08:28→16:20)
[2019-08-02] MEDS: FUROSEMIDE INJ 10 MG/ML 2 ML VIAL IV SCH (08:28)
[2019-08-02] MEDS: LOSARTAN POTASSIUM 100 MG TAB PO SCH (08:28)
[2019-08-02] MEDS: BACITRACIN ZINC 15 GM OINT TOP SCH (08:32)
[2019-08-02 08:33] VITALS: BP 158/61
[2019-08-02] MEDS ORDERED: FUROSEMIDE20 MG PO (09:12)
--- NOTE | 2019-08-02 11:33 | Progress Note ---
DATE: 08/02/2019 SUBJECTIVE: The patient is a 74-year-old female who came in with acute congestive heart failure, currently feeling much better. The patient also had an episode of hypoglycemia. No nausea, vomiting, diarrhea, feeling better, and walking. No orthopnea, no PND and no shortness of breath elicited on walking. OBJECTIVE: VITAL SIGNS: Temperature is 96.1, pulse of 81, respirations of 18, blood pressure is 158/61, pulse oximetry 94%. HEENT: Normocephalic and atraumatic. Pupils are reactive to light and accommodation. CVS: S1 and S2 normal. Regular rate and rhythm. ESM present. ABDOMEN: Nontender and nondistended. EXTREMITIES: No clubbing, no cyanosis, and no edema. MEDICATIONS: Reviewed: 1. The patient is on insulin lispro 5 units a.c. and at bedtime. 2. Simvastatin 40 mg. 3. Losartan 50. 4. Carvedilol 6.25. 5. Aspirin 81. 6. Insulin glargine 7 units at nighttime. 7. Levothyroxine 75 mcg. 8. Furosemide 20 mg twice a day. ASSESSMENT AND PLAN: Acute congestive heart failure. The patient can be discharged on Lasix today 20 mg twice a day. She is on an ARB and beta blockade, continue same. Aspirin and statin are in place. Continue monitoring her lipids as an outpatient. For her hyperglycemia, the patient has Lantus, which has been reduced to 7 units and also her Humalog has been reduced to 5 units q.a.c. at bedtime. Further recommendation per clinical course. We will continue to monitor the patient. The patient can be discharged today and to be followed up with Dr. Galicia in about 2 days to check her BMP. Further recommendation per clinical course. Strict ER warnings were given to the patient and the patient is given hyperglycemic protocol to check her sugars more often and eat frequent meals regularly. Sebastian Ron MD ASJ/MODL /[id number]
[2019-08-02 12:06] VITALS: BP 118/63
--- NOTE | 2019-08-02 15:35 | NUR ---
Visit made by the Spiritual Care Department Pastoral Visitor, Sven Berrios. PV provided pastoral presence, hospitality, communion, and supportive listening. Pastoral Visitor informed pt/family of the scope of Lead Technologist In [employer] Services and availability. JOSSIE SOUTH [employer] Spiritual Care Department O: [phone] Pager: [phone] ([phone] number calling from)
[2019-08-02 16:10] VITALS: BP 139/75
--- NOTE | 2019-08-02 16:20 | NUR ---
Per patient she already has Lantus and Humalog at home, no need for new prescription.
--- NOTE | 2019-08-02 16:20 | NUR ---
Dr. Montes in to see patient. Per MD patient to take Lantus 10 units in the morning, Humalog 5-7 units with meals depending on size of meal.
--- NOTE | 2019-08-02 16:53 | NUR ---
Received discharge order from MD in AM. Received clearance from Dr. Montes for discharge. Patient is in stable condition. IV line to right forearm discontinued with tip intact, pressure applied to site, no bleeding noted. Discharge teaching provided to patient and daughter. Discharge folder with prescriptions on hand. Personal items on hand. Patient accompanied to private auto via wheelchair by staff.
[2019-08-02] MEDS ORDERED: FUROSEMIDE 20 MG TAB PO SCH (18:00)
== END 2019-08-02 16:57 | disposition home or self-care (01) | DRG 291 ==
LOC: ER 16:25 → ERHOLD 18:45 → MED/SURG3 07-29 12:30
PROVIDERS: ADMIT Internal Medicine; ATTEND Internal Medicine
DX: I13.0 Hypertensive heart and chronic kidney disease with heart failure and stage 1 through stage 4 chronic kidney disease, or unspecified chronic kidney disease (principal); I50.33 Acute on chronic diastolic (congestive) heart failure; N18.3 Chronic kidney disease, stage 3 (moderate); E66.9 Obesity, unspecified; Z68.37 Body mass index [BMI] 37.0-37.9, adult; I25.10 Atherosclerotic heart disease of native coronary artery without angina pectoris; Z95.1 Presence of aortocoronary bypass graft; E78.5 Hyperlipidemia, unspecified; E11.649 Type 2 diabetes mellitus with hypoglycemia without coma; Z79.4 Long term (current) use of insulin; E03.9 Hypothyroidism, unspecified
CPT/HCPCS: 36415; 71046; 80048; 80053; 81001; 82550; 82553; 82947; 82948; 83036; 83735; 83880; 84439; 84443; 84484; 85025; 87400; 93005; 96372; 99285; J1815; J1940; J2405; J7070; J7799

== ENCOUNTER → 2020-09-09 | Outpatient (CLI) | payer MEDICARE ==
[~2020-09-09] MED LIST changes: +AMLODIPINE BESYL5 MG PO; +CLOPIDOGREL75 MG PO; +FUROSEMIDE20 MG PO; +GLIMEPIRIDE4 MG PO; +LOW DOSE ASPIRI81 MG PO; +METOPROLOL SUCC25 MG PO
== END ==
LOC: CARD 13:41
PROVIDERS: ATTEND Internal Medicine
DX: I73.9 Peripheral vascular disease, unspecified (principal)
CPT/HCPCS: 93925

== ENCOUNTER → 2020-10-05 | Outpatient (CLI) | payer MEDICARE | LOC: CARD 14:21 | PROVIDERS: ATTEND Internal Medicine | DX: I65.29 Occlusion and stenosis of unspecified carotid artery (principal) | CPT/HCPCS: 93880 ==